=== PATIENT | female | born 1960 | race American Indian/Alaskan Native ===

== ENCOUNTER 2017-07-30 21:02 | Emergency (ER) | payer SELFPAY ==
[2017-07-30 21:51] LABS: Basophils % (Auto) 0.4 % (0.0-1.8); Eosinophils % (Auto) 1.6 % (0.0-4.3); Mean Corpuscular HGB Conc 33 % (30-34); Mean Corpuscular Hemoglobin 29 pg (28-32); Mean Corpuscular Volume 86 fl (79-97); Platelet Count 192 K/mm3 (140-440); Red Blood Count 4.52 M/mm3 (3.65-5.03); White Blood Count 9.2 K/mm3 (4.5-11.0)
[2017-07-30 22:12] LABS: Anion Gap 18 mmol/L; BUN/Creatinine Ratio 20; Blood Urea Nitrogen 12 mg/dL (7-17); Calcium 9.4 mg/dL (8.4-10.2); Carbon Dioxide 24 mmol/L (22-30); Chloride 101.3 mmol/L (98-107); Glucose 115 mg/dL (65-100); Potassium 3.7 mmol/L (3.6-5.0); Sodium 140 mmol/L (137-145)
[2017-07-30 23:43] LABS: Mucus,Urine FEW /HPF
--- NOTE | 2017-07-31 00:09 | Cat Scan Report ---
FINAL REPORT EXAM: CT HEAD/BRAIN WO CON HISTORY: RODRÍGUEZ TECHNIQUE: Routine axial imaging was obtained of the brain without IV contrast. FINDINGS: There are no attenuation abnormalities. The ventricular system is appropriate in size and is symmetric. The basal cisterns appear normal. The visualized sinuses are clear. The mastoid air cells are well pneumatized. The calvarium appears intact. IMPRESSION: Within normal limits.
[2017-07-31 00:23] VITALS: BP 187/97
[2017-07-31 00:31] LABS: Bacteria,Urine 1+ /HPF (Negative); Bilirubin,Urine NEG (Negative); Blood,Urine SM (Negative); Ketones,Urine NEG (Negative); Leukocyte Esterase,Urine NEG (Negative); Nitrite,Urine NEG (Negative); Urobilinogen,Urine < 2.0 mg/dL (<2.0)
[2017-07-31] MEDS ORDERED: TYLENOL PO ONE (00:33)
[2017-07-31] MEDS ORDERED: TYLENOL ONE (00:36)
== END 2017-07-31 03:15 | disposition left against medical advice (07) ==
LOC: ED 21:02
DX: Z53.21 Procedure and treatment not carried out due to patient leaving prior to being seen by health care provider (principal)
CPT/HCPCS: 36415; 70450; 80048; 81001; 82962; 84484; 85025; 93005; 93010

== ENCOUNTER 2017-09-09 13:23 | Outpatient (CLI) | payer MEDICAID ==
--- NOTE | 2017-09-09 14:12 | XRay Report ---
SUPINE KUB: History: Right-sided abdominal pain. The abdominal gas pattern is unremarkable. No masses or organomegaly is identified and there is no gross evidence of free air or fluid. No significant soft tissue calcifications are noted. IVC filter is noted at the level of L3. IMPRESSION: Unremarkable abdomen.
== END 2017-09-09 13:24 | disposition home or self-care (01) ==
LOC: XRAY 13:23
PROVIDERS: ATTEND Internal Medicine Hematology & Oncology
DX: R10.9 Unspecified abdominal pain (principal); I10 Essential (primary) hypertension; Z86.711 Personal history of pulmonary embolism
CPT/HCPCS: 74000

== ENCOUNTER 2017-09-30 09:50 | Outpatient (CLI) | payer MEDICAID ==
[2017-09-30 11:03] LABS: Blood Urea Nitrogen 10 mg/dL (7-17)
--- NOTE | 2017-09-30 12:20 | Cat Scan Report ---
CTA ABDOMEN AND PELVIS INDICATION: Right-sided abdominal pain. COMPARISON: None similar. FINDINGS: Abdomen and pelvis CT performed following IV contrast only. Axial, sagittal and coronal CT reconstructions as also computer-generated with rotation images pain. LUNG BASES: A 1 cm left lower lobe calcified granuloma noted with few small nonspecific left lower lobe and right middle lobe peripheral/pleural based noncalcified subcentimeter nodular densities. Nonspecific distal esophageal wall prominence/thickening, not excluded for gastroesophageal reflux and/or hiatal hernia, amongst others. ABDOMEN: CTA images demonstrate non-aneurysmal abdominal aorta with patent celiac axis, SMA, LAVONNE and single bilateral renal arteries. IVC filter tip just below the level of the renal veins. Multiple calcified gallstones individually measuring to the order of 7 mm fill the gallbladder. Small gallbladder wall calcification may also be present as on axial image 145, series 2. Few scattered hepatic hypervascular foci, some peripheral towards the dome as on axial images 36-60, series 2 while few others inferiorly may measure up to 1.5 cm in the right lobe as on axial image 85, nonspecific, though possibly technical/transient hepatic attenuation differences. Few small splenic calcified granulomas. Pancreas and right adrenal appear unremarkable. Approximately 1.5 cm left adrenal hypodense lesion, possibly an adenoma. Nonhydronephrotic kidneys. No ascites or size significant adenopathy. Nonopacified GI tract evaluation limited, though grossly nonobstructive. Normal appendix. Mild colonic stool. PELVIS: Non-aneurysmal, patent bilateral iliac arteries extending up to the groin. Uterus surgically absent. Grossly unremarkable urinary bladder and the rectosigmoid. No free fluid or significant adenopathy. Multilevel spinal and bilateral SI joint degenerative changes. CONCLUSION: Cholelithiasis and various other incidental findings as old healed granulomatous disease, left adrenal probable adenoma and hysterectomy, amongst others, as described. Please correlate. Thank you for the opportunity to participate in this patient's care.
--- NOTE | 2017-09-30 16:02 | XRay Report ---
ABDOMEN RADIOGRAPH INDICATION: Right-sided abdominal pain. COMPARISON: 10/15/2009 FINDINGS: Frontal abdominal radiograph demonstrates new IVC filter projecting over L2 and L3 on the right. Gap/discontinuity along one of its prongs may project about L3-L4 disc level. Nonobstructive bowel gas pattern. No focal suspicious calcifications, pneumatosis or pneumoperitoneum. Clear visualized lung bases. Intact bones. CONCLUSION: No acute abdominal radiographic abnormality with a new IVC filter noted since 2009, as described. Please correlate. Dr. London's office unreachable on multiple attempts; phone message left. Thank you for the opportunity to participate in this patient's care.
--- NOTE | 2017-10-01 10:33 | Mammography Report ---
BILATERAL DIGITAL SCREENING MAMMOGRAM with CAD: 09/30/17 09:50:00 CLINICAL: Routine screening. COMPARISON: None available. FINDINGS: There are bilateral scattered areas of fibroglandular density.No mass, architectural distortion or suspicious calcifications. IMPRESSION: No mammographic evidence of malignancy. BI-RADS CATEGORY: 1 -- Negative RECOMMENDATION: Routine mammographic screening in one year. COMMENT: Patient follow-up letters are generated by our [employer] application.
== END 2017-09-30 09:51 | disposition home or self-care (01) ==
LOC: CT 09:50
PROVIDERS: ATTEND Internal Medicine Hematology & Oncology
DX: Z12.31 Encounter for screening mammogram for malignant neoplasm of breast (principal); R91.8 Other nonspecific abnormal finding of lung field; K80.20 Calculus of gallbladder without cholecystitis without obstruction; E27.8 Other specified disorders of adrenal gland; M47.899 Other spondylosis, site unspecified; Z90.710 Acquired absence of both cervix and uterus
CPT/HCPCS: 36415; 74018; 74174; 77067; 82565; 84520; Q9967

== ENCOUNTER 2017-12-15 12:31 | Inpatient (IN) | payer MEDICAID, OTHER ==
[2017-12-15] MEDS ORDERED: SODIUM CHLORIDE FLUSH SYRINGE 10 ML IV PRN (13:43)
[2017-12-15] MEDS ORDERED: TYLENOL PO PRN (13:43)
[2017-12-15] MEDS ORDERED: ZOFRAN IV PRN (13:43)
[2017-12-15] MEDS ORDERED: PROVENTIL IH PRN (13:43)
--- NOTE | 2017-12-15 13:46 | History and Physical Report ---
History of Present Illness Chief complaint: Im hurting History of present illness: 57 YO Female with MO, CML, HTN, Anemia, Chronic Pain Syndrome, DVT/PE not currently taking anticoagulation, S/P IVC Filter placement admitted directly to [facility] at the request of Dr. London. Pt seen and evaluated upon arrival. Pt states that she has experienced painful rash along her right flank. Pt denies fever, chills, CP, Palpitations, NVD, Syncope, productive cough, BRBPR, or recent ill contacts. No reported nursing events. Past History Past Medical History: anemia, cancer, DVT, hypertension, pulmonary embolism Past Surgical History: hysterectomy, Other (IVC filter placement) Social history: single, lives with family Family history: no significant family history (reviewed) Medications and Allergies Allergies Allergy/AdvReac Type Severity Reaction Status Date / Time Penicillins Allergy Swelling Verified 07/30/17 21:21 Home Medications Medication Instructions Recorded Confirmed Last Taken Type Amlodipine Besylate [Norvasc] 10 mg PO 12/15/17 Unknown History HYDROcodone/APAP 5-325 5 - 325 mg PO Q6H PRN 12/15/17 12/15/17 Unknown History Metoprolol Tartrate 50 mg PO BID 12/15/17 12/15/17 Unknown History Sprycel 100 mg PO DAILY 12/15/17 12/15/17 Unknown History Sulfamethoxazole/Trimethoprim 160 mg PO BID 12/15/17 12/15/17 Unknown History Vitamin D2 50 PO 1XW 12/15/17 Unknown History hydrOXYzine HCL 25 mg PO TID 12/15/17 12/15/17 Unknown History oxyCODONE /ACETAMINOPHEN 10 - 325 mg PO TID 12/15/17 12/15/17 Unknown History Active Meds: Active Medications Acetaminophen (Tylenol) 650 mg PO Q4H PRN PRN Reason: Pain MILD(1-3)/Fever >100.5/RODRÍGUEZ Albuterol (Proventil) 2.5 mg IH Q4HRT PRN PRN Reason: Shortness Of Breath Ondansetron HCl (Zofran) 4 mg IV Q8H PRN PRN Reason: Nausea And Vomiting Sodium Chloride (Sodium Chloride Flush Syringe 10 Ml) 10 ml IV BID AKASH Sodium Chloride (Sodium Chloride Flush Syringe 10 Ml) 10 ml IV PRN PRN PRN Reason: LINE FLUSH Review of Systems Constitutional: no weight loss, no weight gain, no fever, no chills Ears, nose, mouth and throat: no ear pain, no ear discharge, no tinnitis, no decreased hearing, no nose pain, no nasal congestion Breasts: no change in shape, no swelling, no mass Cardiovascular: no chest pain, no orthopnea, no palpitations, no lightheadedness Respiratory: no cough, no cough with sputum, no excessive sputum, no hemoptysis , no shortness of breath Gastrointestinal: no abdominal pain, no nausea, no vomiting, no diarrhea Genitourinary Female: flank pain, no dysuria, no urinary frequency, no urgency, no stress incontinence, no post void dribbling Rectal: no pain, no incontinence, no bleeding Musculoskeletal: no neck stiffness, no neck pain, no shooting arm pain, no arm numbness/tingling, no low back pain, no shooting leg pain, no leg numbness/ tingling, no redness of joints Integumentary: rash (Right Flank, dermatomal distribution) Neurological: no head injury, no transient paralysis, no paralysis, no weakness , no parathesias, no numbness, no tingling Psychiatric: no anxiety, no memory loss, no change in sleep habits, no sleep disturbances, no insomnia, no hypersomnia Endocrine: no cold intolerance, no heat intolerance, no polyphagia, no excessive thirst Hematologic/Lymphatic: lymphedema, no easy bruising, no easy bleeding, no lymphadenopathy Allergic/Immunologic: no urticaria, no allergic rhinitis, no wheezing, no persistent infections, no anaphylaxis Exam - Constitutional General appearance: Present: mild distress, obese - EENT Eyes: Present: PERRL ENT: hearing intact, clear oral mucosa - Neck Neck: Present: supple, normal ROM - Respiratory Respiratory effort: labored Respiratory: bilateral: diminished - Cardiovascular Heart Sounds: Present: S1 & S2. Absent: rub, click - Extremities Extremities: pulses symmetrical, No edema Extremity abnormal: edema Peripheral Pulses: within normal limits - Abdominal General gastrointestinal: Present: soft, non-tender, non-distended, normal bowel sounds Female genitourinary: Present: normal - Integumentary Integumentary: Present: erythema, rash (Right flank, dermatomal distribution) - Musculoskeletal Musculoskeletal: generalized weakness - Psychiatric Psychiatric: appropriate mood/affect, intact judgment & insight - Neurologic Neurologic: CNII-XII intact, moves all extremities Results - Labs CBC & Chem 7: 12/15/17 15:21 12/15/17 15:14 Assessment and Plan - Patient Problems (1) CML (chronic myelocytic leukemia) Current Visit: Yes Status: Acute Plan to address problem: Oncology consulted, IVF resuscitation, pain control, continue current therapy (2) Shingles rash Current Visit: Yes Status: Acute Qualifiers: Herpes zoster complications: unspecified herpes zoster complication Qualified Code(s): B02.8 - Zoster with other complications Plan to address problem: Pain control, Acyclovir therapy, (3) History of pulmonary embolism Current Visit: Yes Status: Acute Plan to address problem: S/P IVC finter placement, not currently on anticoagulation. Vascular consulted, X ray abdomen, (4) S/P insertion of IVC (inferior vena caval) filter Current Visit: Yes Status: Acute Plan to address problem: VAscular surgery consulted regarding evaluation of IVC filter, and possible erosion into surrounding viscera. (5) DVT prophylaxis Current Visit: Yes Status: Acute Plan to address problem: SCD to BLE while in bed
[2017-12-15 15:35] LABS: Basophils % (Auto) 0.4 % (0.0-1.8); Eosinophils # (Auto) 0.2 K/mm3 (0.0-0.4); Eosinophils % (Auto) 2.3 % (0.0-4.3); Hematocrit 35.4 % (30.3-42.9); Hemoglobin 11.8 gm/dl (10.1-14.3); Lymphocytes # (Auto) 2.2 K/mm3 (1.2-5.4); Lymphocytes % (Auto) 32.8 % (13.4-35.0); Mean Corpuscular HGB Conc 33 % (30-34); Mean Corpuscular Hemoglobin 28 pg (28-32); Mean Corpuscular Volume 86 fl (79-97); Monocytes % (Auto) 15.3 % (0.0-7.3); Platelet Count 133 K/mm3 (140-440); Red Blood Count 4.15 M/mm3 (3.65-5.03); Red Cell Distribution Width 15.3 % (13.2-15.2)
--- NOTE | 2017-12-15 15:38 | XRay Report ---
AP ABDOMEN: HISTORY: Abdominal pain. The abdominal gas pattern is unremarkable. No masses or organomegaly is identified and there is no gross evidence of free air or fluid. No significant soft tissue calcifications are noted. An IVC filter is identified at the L3 level. No significant change since 09/30/17. IMPRESSION: Unremarkable abdomen.
[2017-12-15 16:00] LABS: Alanine Aminotransferase 12 units/L (7-56); Albumin 3.6 g/dL (3.9-5); BUN/Creatinine Ratio 19; Blood Urea Nitrogen 13 mg/dL (7-17); Calcium 8.7 mg/dL (8.4-10.2); Hemolysis Index 9
--- NOTE | 2017-12-15 19:35 | Consultation ---
History of Present Illness - Reason for Consult Consult date: 12/15/17 Requesting physician: ELISHA ROMO - History of Present Illness This pt is a 57 yo AAF directly admitted to [facility] with abdominal pain. She has a h/o DVT/PE in 2010. She was a poor candidate for anticoagulation due to persistent vaginal bleeding due to fibroids. An [employer] option inferior vena cava filter was placed (02/28/2011). The pt states approximately 1 yr later she developed episodic bouts of abd pain. She has had an extensive w/u by report. This included a CT scan of the abd/pelvis that reportedly showed a limb of the vena cava filter that exited the vena cava and potentially enters the duodenum. There is also mention of abd granulomas and Gallstones. She has been evaluated as an outpt for possible filter removal at [facility] (Dr Bethea) and [facility] (Dr Israel). A vascular surgery consult is now requested to further evaluate. Past History Past Medical History: hypertension, other (chronic back pain, h/o fibroids) Past Surgical History: Other (as stated above [employer] Option IVC filter 2010) Social history: lives with family (recently moved from [place]), other ( medically disabled). denies: smoking Family history: no significant family history Medications and Allergies Allergies Allergy/AdvReac Type Severity Reaction Status Date / Time Penicillins Allergy Swelling Verified 07/30/17 21:21 Active Meds: Active Medications Acetaminophen (Tylenol) 650 mg PO Q4H PRN PRN Reason: Pain MILD(1-3)/Fever >100.5/RODRÍGUEZ Last Admin: 12/15/17 17:39 Dose: 650 mg Albuterol (Proventil) 2.5 mg IH Q4HRT PRN PRN Reason: Shortness Of Breath Ondansetron HCl (Zofran) 4 mg IV Q8H PRN PRN Reason: Nausea And Vomiting Sodium Chloride (Sodium Chloride Flush Syringe 10 Ml) 10 ml IV BID AKASH Sodium Chloride (Sodium Chloride Flush Syringe 10 Ml) 10 ml IV PRN PRN PRN Reason: LINE FLUSH Review of Systems All systems: negative Exam - Constitutional Vitals: Temp Pulse Resp BP Pulse Ox 97.8 F 64 20 167/78 100 12/15/17 15:50 12/15/17 15:50 12/15/17 17:39 04/03/18 15:50 12/15/17 15:50 General appearance: Present: no acute distress, obese - EENT Eyes: Present: EOM intact ENT: hearing intact - Neck Neck: Present: supple - Respiratory Respiratory effort: normal - Extremities Extremities: no ischemia, normal temperature Extremity abnormal: edema (bilat lower ext swelling) - Psychiatric Psychiatric: appropriate mood/affect, intact judgment & insight, cooperative - Neurologic Neurologic: no focal deficits Results - Labs CBC & Chem 7: 12/15/17 15:21 12/15/17 15:14 Labs: Abnormal lab results 12/15/17 12/15/17 Range/Units 15:14 15:21 RDW 15.3 H (13.2-15.2) % Plt Count 133 L (140-440) K/mm3 [place] % (Auto) 15.3 H (0.0-7.3) % [place] # 1.0 H (0.0-0.8) K/mm3 Glucose 118 H (65-100) mg/dL Albumin 3.6 L (3.9-5) g/dL Assessment and Plan This pt is s/p Insertion of IVC filter ([employer] option) in 2010 following a DVT/PE and an inability to anticoagulate due to persistent vaginal bleeding associated with fibroids. She has since developed unexplained abdominal pain. A CT scan suggested that a possible limb of the filter may have penetrated the duodenum. A vascular surgery consult is requested to further evaluate. Would recommend a GI consultation for endoscopy (to visualize the duodenum for penetration by the filter, as the CT can easily be deceptive) prior to considering IVC filter removal. Filter removal after being in place for 7 years is not without risk. I discussed this with the pt. It is also possible that this represents an incidental finding, and may not be the source of her discomfort. She states understanding. Thank you for this consultation. - Patient Problems (1) S/P insertion of IVC (inferior vena caval) filter Current Visit: Yes Status: Acute (2) H/O deep venous thrombosis Current Visit: Yes Status: Acute (3) History of pulmonary embolism Current Visit: Yes Status: Acute (4) Abdominal pain Current Visit: Yes Status: Acute (5) Cholelithiasis Current Visit: Yes Status: Acute
--- NOTE | 2017-12-15 21:38 | Consultation ---
History of Present Illness - Reason for Consult Consult date: 12/15/17 cml/hyperrcoagulable Requesting physician: ELISHA ROMO - History of Present Illness Thank you for this consult, patient seen/examined, again, seen earlier today, and sent for a direct admit, for pain control, and evaluation of her displaced IVC filter.I have read the vascular note, but patient was seen at [facility], and stated that her problem was not related to GI, but is all due to the displaced IVC filter. This same conclusion was reached in [facility], GI, and vascular teams. They wanted her to go back to [place] where the IVC filter was placed. and have it removed.mean while patient has developed shingles on the right dermatome which is very pain full. Patient has active CML, and under going tx at this time from sc.She did have remote hx of DVT left leg, and Puml embolism, but not currently under tx.Will put her on IV anti viral, instead of oral, along with some steroid. Past History Past Medical History: anemia, cancer, hypertension, other (chronic back pain, h/ o fibroids) Past Surgical History: hysterectomy, Other (as stated above [employer] Option IVC filter 02/28/2011) Social history: single, lives with family (recently moved from [place]), other ( medically disabled). denies: smoking Family history: no significant family history Medications and Allergies Allergies Allergy/AdvReac Type Severity Reaction Status Date / Time Penicillins Allergy Swelling Verified 07/30/17 21:21 Home Medications Medication Instructions Recorded Confirmed Last Taken Type Amlodipine Besylate [Norvasc] 10 mg PO 12/15/17 Unknown History HYDROcodone/APAP 5-325 5 - 325 mg PO Q6H PRN 12/15/17 12/15/17 Unknown History Metoprolol Tartrate 50 mg PO BID 12/15/17 12/15/17 Unknown History Sprycel 100 mg PO DAILY 12/15/17 12/15/17 Unknown History Sulfamethoxazole/Trimethoprim 160 mg PO BID 12/15/17 12/15/17 Unknown History Vitamin D2 50 PO 1XW 12/15/17 Unknown History hydrOXYzine HCL 25 mg PO TID 12/15/17 12/15/17 Unknown History oxyCODONE /ACETAMINOPHEN 10 - 325 mg PO TID 12/15/17 12/15/17 Unknown History Active Meds: Active Medications Acetaminophen (Tylenol) 650 mg PO Q4H PRN PRN Reason: Pain MILD(1-3)/Fever >100.5/RODRÍGUEZ Last Admin: 12/15/17 17:39 Dose: 650 mg Acyclovir (Zovirax) 400 mg PO ONCE ONE Stop: 12/15/17 22:01 Albuterol (Proventil) 2.5 mg IH Q4HRT PRN PRN Reason: Shortness Of Breath Morphine Sulfate (Morphine) 2 mg IV Q4H PRN PRN Reason: Pain , Severe (7-10) Ondansetron HCl (Zofran) 4 mg IV Q8H PRN PRN Reason: Nausea And Vomiting Oxycodone/Acetaminophen (Percocet 5/325) 2 tab PO Q12H PRN PRN Reason: Pain, Moderate (4-6) Sodium Chloride (Sodium Chloride Flush Syringe 10 Ml) 10 ml IV BID AKASH Sodium Chloride (Sodium Chloride Flush Syringe 10 Ml) 10 ml IV PRN PRN PRN Reason: LINE FLUSH Review of Systems Constitutional: chronic pain Breasts: deferred Integumentary: rash, redness, lesions Exam - Constitutional Vitals: Temp Pulse Resp BP Pulse Ox 99.0 F 72 28 H 143/67 95 12/15/17 19:45 12/15/17 19:45 12/15/17 19:45 12/15/17 19:45 12/15/17 19:45 General appearance: Present: mild distress, well-nourished - EENT Eyes: Present: PERRL ENT: hearing intact, clear oral mucosa - Neck Neck: Present: supple, normal ROM - Respiratory Respiratory effort: normal Respiratory: bilateral: CTA - Cardiovascular Heart Sounds: Present: S1 & S2. Absent: rub, click - Extremities Extremities: pulses symmetrical, No edema Peripheral Pulses: within normal limits - Abdominal General gastrointestinal: Present: soft, non-tender, non-distended, normal bowel sounds Female genitourinary: Present: deferred - Rectal Rectal Exam: deferred - Integumentary Integumentary: Present: clear, warm, dry - Musculoskeletal Musculoskeletal: gait normal, strength equal bilaterally - Psychiatric Psychiatric: appropriate mood/affect, intact judgment & insight - Neurologic Neurologic: CNII-XII intact, moves all extremities Results - Labs CBC & Chem 7: 12/15/17 15:21 12/15/17 15:14 Labs: Abnormal lab results 12/15/17 12/15/17 Range/Units 15:14 15:21 RDW 15.3 H (13.2-15.2) % Plt Count 133 L (140-440) K/mm3 [place] % (Auto) 15.3 H (0.0-7.3) % [place] # 1.0 H (0.0-0.8) K/mm3 Glucose 118 H (65-100) mg/dL Albumin 3.6 L (3.9-5) g/dL Assessment and Plan - Patient Problems (1) Abdominal pain Current Visit: Yes Status: Acute Plan to address problem: pain control. (2) Cholelithiasis Current Visit: Yes Status: Acute Plan to address problem: supportive care. (3) S/P insertion of IVC (inferior vena caval) filter Current Visit: Yes Status: Acute Plan to address problem: vascular on board. (4) H/O deep venous thrombosis Current Visit: Yes Status: Acute Plan to address problem: not currently active. (5) History of pulmonary embolism Current Visit: Yes Status: Acute Plan to address problem: supportive care, not currently active. (6) Shingles rash Current Visit: Yes Status: Acute Plan to address problem: tx with antiviral/anti inflammatory.
[2017-12-15] MEDS: MORPHINE IV PRN (21:41)
[2017-12-15] MEDS: SODIUM CHLORIDE FLUSH SYRINGE 10 ML IV SCH (21:47)
[2017-12-15] MEDS ORDERED: ZOVIRAX IV SCH (22:00)
[2017-12-15] MEDS ORDERED: ZOVIRAX PO ONE (22:00)
[2017-12-15] MEDS: NACL 0.9% IV SCH (23:36)
[2017-12-15] MEDS: ZOVIRAX IV SCH (23:36)
[2017-12-16] MEDS: ZOVIRAX IV SCH ×3 (05:55→22:34)
[2017-12-16] MEDS: NACL 0.9% IV SCH ×3 (05:55→22:34)
[2017-12-16] MEDS: PERCOCET 5/325 PO PRN ×2 (06:57→22:05)
[2017-12-16] MEDS: SODIUM CHLORIDE FLUSH SYRINGE 10 ML IV SCH (10:42)
--- NOTE | 2017-12-16 11:56 | Progress Note ---
Assessment and Plan Pt with a long history of abd pain (~6yrs). She describes the pain as mostly constant, started off as a "pinching", but over the last week it has worsened and feels, "like an abscess about to pop". We've reviewed the CT scan from [facility] in Sep 2017, and the CT scan from [facility] last week. The filter does appear to exit the vena cava, both at the hub and at tines. One of the tines appears to have from the main body of the filter, (not mentioned on the recent CT dictation). Unlikely to be able to remove the filter in its entirety percutaneously due to the limb separation. It is difficulty to say with all accuracy that the filter tines penetrate the duodenum. The pt states she has never had endoscopy. Would recommend GI consult for endoscopic evaluation prior to any surgical intervention. The pt has multiple potential sources for abd pain found on her most recent CT. This includes Cholelithiasis. Discussed with Dr Laboy (who has previously evaluated the pt). She agrees with endoscopy. If the filter tines are visualized then the pt would likely need an open laporatomy to remove the filter in its entirety. We would co-ordinate with Gen surgery to combine with an open cholecystomy at the same time. If the tines are not visualized then, Gen Surgery could proceed with Laproscopic Cholecystectomy to see if her abd pain improves (thus avoiding the much more invasive open procedure). If the pain persist following Lap Cholecystectomy then we could proceed with open filter removal. Discussed with the Pt. - Patient Problems (1) S/P insertion of IVC (inferior vena caval) filter Current Visit: Yes Status: Acute (2) H/O deep venous thrombosis Current Visit: Yes Status: Acute (3) History of pulmonary embolism Current Visit: Yes Status: Acute (4) Abdominal pain Current Visit: Yes Status: Acute (5) Cholelithiasis Current Visit: Yes Status: Acute Subjective Date of service: 12/16/17 Interval history: Pt awake and alert. Denies new complaint. Objective - Constitutional Vitals: Vital Signs - 12hr 12/16/17 12/16/17 03:22 07:38 Temperature 98.0 F 98 F Pulse Rate 64 61 Respiratory 24 24 Rate Blood Pressure 131/60 Blood Pressure 118/52 [Left] O2 Sat by Pulse 95 95 Oximetry General appearance: Present: no acute distress - EENT Eyes: EOM intact ENT: hearing intact - Respiratory Respiratory effort: normal Extremities: no ischemia Extremity abnormal: edema (bilat lower ext) - Neurologic Neurologic: no focal deficits - Psychiatric Psychiatric: appropriate mood/affect, intact judgment & insight, cooperative - Labs CBC & Chem 7: 12/15/17 15:21 12/15/17 15:14 Labs: Abnormal lab results 12/15/17 12/15/17 Range/Units 15:14 15:21 RDW 15.3 H (13.2-15.2) % Plt Count 133 L (140-440) K/mm3 [place] % (Auto) 15.3 H (0.0-7.3) % [place] # 1.0 H (0.0-0.8) K/mm3 Glucose 118 H (65-100) mg/dL Albumin 3.6 L (3.9-5) g/dL
--- NOTE | 2017-12-16 16:32 | Progress Note ---
Assessment and Plan Assessment and Plan - Patient Problems (1) CML (chronic myelocytic leukemia) Current Visit: Yes Status: Acute Plan to address problem: Oncology consulted, IVF resuscitation, pain control, continue current therapy (2) Shingles rash Current Visit: Yes Status: Acute Qualifiers: Herpes zoster complications: unspecified herpes zoster complication Qualified Code(s): B02.8 - Zoster with other complications Plan to address problem: Pain control, Acyclovir therapy, (3) History of pulmonary embolism Current Visit: Yes Status: Acute Plan to address problem: S/P IVC filter placement, not currently on anticoagulation. Vascular consulted, X ray abdomen, (4) S/P insertion of IVC (inferior vena caval) filter Current Visit: Yes Status: Acute Plan to address problem: VAscular surgery consulted regarding evaluation of IVC filter, and possible erosion into surrounding viscera. (5) DVT prophylaxis Current Visit: Yes Status: Acute Plan to address problem: SCD to BLE while in bed Subjective Date of service: 12/16/17 Principal diagnosis: Shingles and IVC filter p erosion Interval history: Sx better Objective - Constitutional Vitals: Vital Signs - 12hr 12/16/17 12/16/17 12/16/17 07:38 12:12 14:46 Temperature 98 F 98 F 98.9 F Pulse Rate 61 20 L 66 Respiratory 24 18 14 Rate Blood Pressure 118/52 138/71 124/62 [Left] O2 Sat by Pulse 95 97 97 Oximetry General appearance: Present: no acute distress, well-nourished - EENT Eyes: PERRL, EOM intact ENT: hearing intact, clear oral mucosa Ears: bilateral: normal - Neck Neck: supple, normal ROM - Respiratory Respiratory effort: normal Respiratory: bilateral: CTA - Breasts Breasts: normal - Cardiovascular Rhythm: regular Heart Sounds: Present: S1 & S2. Absent: gallop, rub Extremities: pulses intact, No edema, normal color, Full ROM - Gastrointestinal General gastrointestinal: Present: soft, non-tender, non-distended, normal bowel sounds - Genitourinary Female genitourinary: normal - Integumentary Integumentary: clear, warm, dry - Musculoskeletal Musculoskeletal: 1, strength equal bilaterally - Neurologic Neurologic: moves all extremities - Psychiatric Psychiatric: memory intact, appropriate mood/affect, intact judgment & insight - Labs CBC & Chem 7: 12/15/17 15:21 12/19/17 10:47
--- NOTE | 2017-12-16 23:48 | Progress Note ---
Assessment and Plan - Patient Problems (1) Abdominal pain Current Visit: Yes Status: Acute Plan to address problem: pain control. (2) Cholelithiasis Current Visit: Yes Status: Acute Plan to address problem: supportive care. GI/vascular team approach awaited. (3) S/P insertion of IVC (inferior vena caval) filter Current Visit: Yes Status: Acute Plan to address problem: vascular on board. (4) H/O deep venous thrombosis Current Visit: Yes Status: Acute Plan to address problem: not currently active. (5) History of pulmonary embolism Current Visit: Yes Status: Acute Plan to address problem: supportive care, not currently active. (6) Shingles rash Current Visit: Yes Status: Acute Plan to address problem: tx with antiviral/anti inflammatory. Subjective Date of service: 12/16/17 Interval history: Patient seen/examined, case d/w her. Notes/record reviewed.Will follow GI/ Vascular.continue to tx shingles. Objective - Constitutional Vitals: Vital Signs - 12hr 12/16/17 12/16/17 12/16/17 12:12 14:46 19:38 Temperature 98 F 98.9 F 98.5 F Pulse Rate 20 L 66 69 Respiratory 18 14 24 Rate Blood Pressure 147/62 Blood Pressure 138/71 124/62 [Left] O2 Sat by Pulse 97 97 96 Oximetry General appearance: Present: mild distress, well-nourished - EENT Eyes: PERRL, EOM intact ENT: hearing intact, clear oral mucosa Ears: bilateral: normal - Neck Neck: supple, normal ROM - Respiratory Respiratory effort: normal Respiratory: bilateral: CTA - Breasts Breasts: deferred - Cardiovascular Rhythm: regular Heart Sounds: Present: S1 & S2. Absent: gallop, rub Extremities: pulses intact, No edema, normal color, Full ROM - Gastrointestinal General gastrointestinal: Present: soft, non-tender, non-distended, normal bowel sounds Rectal Exam: deferred - Genitourinary Female genitourinary: deferred - Integumentary Integumentary: clear, warm, dry - Musculoskeletal Musculoskeletal: 1, strength equal bilaterally - Neurologic Neurologic: moves all extremities - Psychiatric Psychiatric: memory intact, appropriate mood/affect, intact judgment & insight - Labs CBC & Chem 7: 12/15/17 15:21 12/15/17 15:14
[2017-12-17] MEDS: NACL 0.9% IV SCH ×3 (06:17→21:46)
[2017-12-17] MEDS: ZOVIRAX IV SCH ×3 (06:17→21:46)
[2017-12-17] MEDS: SODIUM CHLORIDE FLUSH SYRINGE 10 ML IV SCH ×3 (06:19→21:48)
--- NOTE | 2017-12-17 09:56 | Gastroenterology Consultation ---
<KYA MIGUEL - Last Filed: 12/17/17 10:26> History of Present Illness - Reason for Consult Consult date: 12/17/17 FB duodenum-IVC filter tines Requesting physician: JEFFREY URBINA - History of Present Illness Patient is a 57 y/o female with PMH of [place], CML (actively receiving tx), HTN, anemia, chronic pain syndrome, DVT/PE (s/p IVC filter placement) who was admitted directly to [facility] by Dr. Ignacio for pain control from shingles, abd pain, and evaluation of her displaced IVC filter. Recent abd CT showed cholelithiasis and a limb of the vena cava filter that exited the vena cava and potentially enters the duodenum. Surgery and IR following. GI has been consulted for an endoscopic evaluation to see if the filter tines penetrate the duodenum prior to surgical intervention to determine if pt would need to undergo an open laporatomy to remove filter in its entirety with open cholecystomy vs laproscopic cholecystectomy with potential open filter removal if abd pain persists. This morning pt was resting in bed w/o acute distress. She reports constant right sided abd pain that feels like something is stabbing/ sticking her. No N/V and currently tolerating diet. Denies fever, wt loss, CP, SOB, dysphagia, odynophagia, diarrhea, constipation, or signs of bleeding. No previous EGD. Past History Past Medical History: anemia, cancer, DVT, hypertension, pulmonary embolism Past Surgical History: hysterectomy, Other (IVC filter placement) Social history: single, lives with family Family history: no significant family history (reviewed) Medications and Allergies Allergies Allergy/AdvReac Type Severity Reaction Status Date / Time Penicillins Allergy Swelling Verified 07/30/17 21:21 Home Medications Medication Instructions Recorded Confirmed Last Taken Type Amlodipine Besylate [Norvasc] 10 mg PO 12/15/17 Unknown History HYDROcodone/APAP 5-325 5 - 325 mg PO Q6H PRN 12/15/17 12/15/17 Unknown History Metoprolol Tartrate 50 mg PO BID 12/15/17 12/15/17 Unknown History Sprycel 100 mg PO DAILY 12/15/17 12/15/17 Unknown History Sulfamethoxazole/Trimethoprim 160 mg PO BID 12/15/17 12/15/17 Unknown History Vitamin D2 50 PO 1XW 12/15/17 Unknown History hydrOXYzine HCL 25 mg PO TID 12/15/17 12/15/17 Unknown History oxyCODONE /ACETAMINOPHEN 10 - 325 mg PO TID 12/15/17 12/15/17 Unknown History Active Meds: Active Medications Acetaminophen (Tylenol) 650 mg PO Q4H PRN PRN Reason: Pain MILD(1-3)/Fever >100.5/RODRÍGUEZ Last Admin: 12/15/17 17:39 Dose: 650 mg Albuterol (Proventil) 2.5 mg IH Q4HRT PRN PRN Reason: Shortness Of Breath Acyclovir 1,000 mg/ Sodium (Chloride) 270 mls @ 135 mls/hr IV Q8HR [facility] Last Admin: 12/17/17 06:17 Dose: 135 mls/hr Methylprednisolone Sodium Succinate (Solu-Medrol) 40 mg IV Q24HR [facility] Last Admin: 12/16/17 10:42 Dose: 40 mg Morphine Sulfate (Morphine) 2 mg IV Q4H PRN PRN Reason: Pain , Severe (7-10) Last Admin: 12/15/17 21:41 Dose: 2 mg Ondansetron HCl (Zofran) 4 mg IV Q8H PRN PRN Reason: Nausea And Vomiting Oxycodone/Acetaminophen (Percocet 5/325) 2 tab PO Q12H PRN PRN Reason: Pain, Moderate (4-6) Last Admin: 12/16/17 22:05 Dose: 2 tab Sodium Chloride (Sodium Chloride Flush Syringe 10 Ml) 10 ml IV BID [facility] Last Admin: 12/17/17 06:19 Dose: 10 ml Sodium Chloride (Sodium Chloride Flush Syringe 10 Ml) 10 ml IV PRN PRN PRN Reason: LINE FLUSH Last Admin: 12/16/17 22:08 Dose: 10 ml Review of Systems - Review of Systems All systems: negative Gastrointestinal: abdominal pain Exam - Constitutional Vital Signs: Temp Pulse Resp BP Pulse Ox 98.1 F 61 20 127/51 96 12/17/17 03:57 12/17/17 03:57 12/17/17 03:57 12/17/17 03:57 12/17/17 03:57 General appearance: no acute distress, obese - EENT Eyes: PERRL, EOM intact ENT: hearing intact - Respiratory Respiratory: bilateral: CTA - Cardiovascular Rhythm: regular Heart Sounds: Present: S1 & S2 - Gastrointestinal General gastrointestinal: Present: soft, tender (mild right sided TTP), non- distended, normal bowel sounds - Integumentary Integumentary: Present: warm, dry - Neurologic Neurological: alert and oriented x3 - Labs CBC & Chem 7: 12/15/17 15:21 12/15/17 15:14 Assessment and Plan 1.abd pain 2.s/p insertion of IVC filter 3.cholelithiasis 4.h/o DVT/PE 5.shingles -afebrile -WBC and LFTs-WNL -abd CT showed cholelithiasis and a limb of the vena cava filter that exited the vena cava and potentially enters the duodenum -Surgery and IR following -will schedule for EGD tomorrow (pt ate breakfast today) for evaluation to see if filter tines penetrate the duodenum -NPO after MN -INR in am -continue supportive care -will follow <VAL BROWN - Last Filed: 12/17/17 20:51> Medications and Allergies Active Meds: Active Medications Acetaminophen (Tylenol) 650 mg PO Q4H PRN PRN Reason: Pain MILD(1-3)/Fever >100.5/RODRÍGUEZ Last Admin: 12/15/17 17:39 Dose: 650 mg Albuterol (Proventil) 2.5 mg IH Q4HRT PRN PRN Reason: Shortness Of Breath Acyclovir 1,000 mg/ Sodium (Chloride) 270 mls @ 135 mls/hr IV Q8HR [facility] Last Admin: 12/17/17 19:19 Dose: Not Given Methylprednisolone Sodium Succinate (Solu-Medrol) 40 mg IV Q24HR [facility] Last Admin: 12/17/17 09:57 Dose: 40 mg Morphine Sulfate (Morphine) 2 mg IV Q4H PRN PRN Reason: Pain , Severe (7-10) Last Admin: 12/17/17 12:13 Dose: 2 mg Ondansetron HCl (Zofran) 4 mg IV Q8H PRN PRN Reason: Nausea And Vomiting Oxycodone/Acetaminophen (Percocet 5/325) 2 tab PO Q12H PRN PRN Reason: Pain, Moderate (4-6) Last Admin: 12/16/17 22:05 Dose: 2 tab Sodium Chloride (Sodium Chloride Flush Syringe 10 Ml) 10 ml IV BID [facility] Last Admin: 12/17/17 10:00 Dose: 10 ml Sodium Chloride (Sodium Chloride Flush Syringe 10 Ml) 10 ml IV PRN PRN PRN Reason: LINE FLUSH Last Admin: 12/16/17 22:08 Dose: 10 ml Exam - Constitutional Vital Signs: Temp Pulse Resp BP Pulse Ox 98.7 F 72 24 138/62 97 12/17/17 20:11 12/17/17 20:11 12/17/17 20:11 12/17/17 20:11 12/17/17 20:11 - Labs CBC & Chem 7: 12/15/17 15:21 12/17/17 10:52 Lab Results: Laboratory Results - last 24 hr 12/17/17 10:52 Sodium 136 L Potassium 4.8 D Chloride 103.3 Carbon Dioxide 20 L Anion Gap 18 BUN 13 Creatinine 0.6 L Estimated GFR > 60 BUN/Creatinine Ratio 22 Glucose 120 H Calcium 8.9 Assessment and Plan Patient seen and examined. Agree with note by Kya Miguel.
--- NOTE | 2017-12-17 10:00 | Event Note ---
Date: 12/17/17 Vascular awaiting GI evaluation with endoscopy for further recommendations.
[2017-12-17] MEDS: MORPHINE IV PRN (12:13)
[2017-12-17 12:19] LABS: BUN/Creatinine Ratio 22; Blood Urea Nitrogen 13 mg/dL (7-17); Calcium 8.9 mg/dL (8.4-10.2); Hemolysis Index 272
--- NOTE | 2017-12-17 14:03 | Progress Note ---
Assessment and Plan Assessment and Plan - Patient Problems (1) CML (chronic myelocytic leukemia) Current Visit: Yes Status: Acute Plan to address problem: Oncology consulted, IVF resuscitation, pain control, continue current therapy (2) Herpes zoster Current Visit: Yes Status: Acute Qualifiers: Herpes zoster complications: unspecified herpes zoster complication Qualified Code(s): B02.8 - Zoster with other complications Plan to address problem: Pain control, Acyclovir therapy, (3) History of pulmonary embolism Current Visit: Yes Status: Acute Plan to address problem: S/P IVC filter placement, not currently on anticoagulation. Vascular consulted, X ray abdomen, (4) S/P insertion of IVC (inferior vena caval) filter Current Visit: Yes Status: Acute Plan to address problem: VAscular surgery consulted regarding evaluation of IVC filter, and possible erosion into surrounding viscera. (5) DVT prophylaxis Current Visit: Yes Status: Acute Plan to address problem: SCD to BLE while in bed Subjective Date of service: 12/17/17 Principal diagnosis: Herpes Zoster and IVC filter possible erosion Interval history: Sx better Objective - Constitutional Vitals: Vital Signs - 12hr 12/17/17 12/17/17 03:57 10:03 Temperature 98.1 F Pulse Rate 61 Respiratory 20 Rate Blood Pressure 127/51 O2 Sat by Pulse 96 100 Oximetry General appearance: Present: no acute distress, well-nourished - EENT Eyes: PERRL, EOM intact ENT: hearing intact, clear oral mucosa Ears: bilateral: normal - Neck Neck: supple, normal ROM - Respiratory Respiratory effort: normal Respiratory: bilateral: CTA - Breasts Breasts: normal - Cardiovascular Rhythm: regular Heart Sounds: Present: S1 & S2. Absent: gallop, rub Extremities: pulses intact, No edema, normal color, Full ROM - Gastrointestinal General gastrointestinal: Present: soft, non-tender, non-distended, normal bowel sounds - Genitourinary Female genitourinary: normal - Integumentary Integumentary: clear, warm, dry - Musculoskeletal Musculoskeletal: 1, strength equal bilaterally - Neurologic Neurologic: moves all extremities - Psychiatric Psychiatric: memory intact, appropriate mood/affect, intact judgment & insight - Labs CBC & Chem 7: 12/15/17 15:21 12/19/17 10:47 Labs: Abnormal lab results 12/17/17 Range/Units 10:52 Sodium 136 L (137-145) mmol/L Carbon Dioxide 20 L (22-30) mmol/L Creatinine 0.6 L (0.7-1.2) mg/dL Glucose 120 H (65-100) mg/dL
--- NOTE | 2017-12-17 15:03 | Progress Note ---
Assessment and Plan She is admitted to control her Shingles. She had known symptomatic gallstones and this was being addressed by Dr. Preston. The plan was to perform an elective cholecystectomy once her Shingles resolve as the blistering extends into the area were we would make incisions. The recommends now are to first continue treating the shingles. Second vascular surgery will determine if the IVC filter needs to be removed based on the findings on the EGD that is planned. If they determine the IVC filter needs to be removed then will remove the gallbladder at the same operation. If vascular surgery determines the IVC filter does not need to be removed at this time then we will wait for her shingles to resolve and then set up an elective laparoscopic cholecystectomy. Will follow until which the final plan is determined. Subjective Date of service: 12/17/17 Patient Reports: Positive: no new complaints Objective Vital Signs - 12hr 12/17/17 12/17/17 03:57 10:03 Temperature 98.1 F Pulse Rate 61 Respiratory 20 Rate Blood Pressure 127/51 O2 Sat by Pulse 96 100 Oximetry - General physical appearance well developed, well nourished, obese - Abdomen soft, not tender, bowel sounds normal - Labs 12/15/17 15:21 12/17/17 10:52 Diabetes panel 12/17/17 Range/Units 10:52 Sodium 136 L (137-145) mmol/L Potassium 4.8 D (3.6-5.0) mmol/L Chloride 103.3 (98-107) mmol/L Carbon Dioxide 20 L (22-30) mmol/L BUN 13 (7-17) mg/dL Creatinine 0.6 L (0.7-1.2) mg/dL Glucose 120 H (65-100) mg/dL Calcium 8.9 (8.4-10.2) mg/dL Calcium panel 12/17/17 Range/Units 10:52 Calcium 8.9 (8.4-10.2) mg/dL Pituitary panel 12/17/17 Range/Units 10:52 Sodium 136 L (137-145) mmol/L Potassium 4.8 D (3.6-5.0) mmol/L Chloride 103.3 (98-107) mmol/L Carbon Dioxide 20 L (22-30) mmol/L BUN 13 (7-17) mg/dL Creatinine 0.6 L (0.7-1.2) mg/dL Glucose 120 H (65-100) mg/dL Calcium 8.9 (8.4-10.2) mg/dL Adrenal panel 12/17/17 Range/Units 10:52 Sodium 136 L (137-145) mmol/L Potassium 4.8 D (3.6-5.0) mmol/L Chloride 103.3 (98-107) mmol/L Carbon Dioxide 20 L (22-30) mmol/L BUN 13 (7-17) mg/dL Creatinine 0.6 L (0.7-1.2) mg/dL Glucose 120 H (65-100) mg/dL Calcium 8.9 (8.4-10.2) mg/dL
--- NOTE | 2017-12-17 23:12 | Progress Note ---
Assessment and Plan - Patient Problems (1) Abdominal pain Current Visit: Yes Status: Acute Plan to address problem: pain control. (2) Cholelithiasis Current Visit: Yes Status: Acute Plan to address problem: supportive care. GI/vascular team approach awaited. (3) S/P insertion of IVC (inferior vena caval) filter Current Visit: Yes Status: Acute Plan to address problem: vascular on board. (4) H/O deep venous thrombosis Current Visit: Yes Status: Acute Plan to address problem: not currently active. (5) History of pulmonary embolism Current Visit: Yes Status: Acute Plan to address problem: supportive care, not currently active. (6) Shingles rash Current Visit: Yes Status: Acute Plan to address problem: tx with antiviral/anti inflammatory. (7) Chronic leukemia Current Visit: Yes Status: Acute Plan to address problem: continue with oral treatment. Subjective Date of service: 12/17/17 Interval history: Patient seen/examined, case d/w her. Notes/record reviewed.Will follow GI/ Vascular.continue to tx shingles. Patient seen/examined, resting in bed, labs reviewed, and the notes. will follow your plans. Objective - Constitutional Vitals: Vital Signs - 12hr 12/17/17 12/17/17 12/17/17 15:11 20:11 21:42 Temperature 98.0 F 98.7 F Pulse Rate 64 72 Respiratory 18 24 Rate Blood Pressure 149/61 138/62 O2 Sat by Pulse 96 97 97 Oximetry General appearance: Present: mild distress, well-nourished - EENT Eyes: PERRL, EOM intact ENT: hearing intact, clear oral mucosa Ears: bilateral: normal - Neck Neck: supple, normal ROM - Respiratory Respiratory effort: normal Respiratory: bilateral: CTA - Breasts Breasts: deferred - Cardiovascular Rhythm: regular Heart Sounds: Present: S1 & S2. Absent: gallop, rub Extremities: pulses intact, No edema, normal color, Full ROM - Gastrointestinal General gastrointestinal: Present: soft, non-tender, non-distended, normal bowel sounds Rectal Exam: deferred - Genitourinary Female genitourinary: deferred - Integumentary Integumentary: clear, warm, dry - Musculoskeletal Musculoskeletal: 1, strength equal bilaterally - Neurologic Neurologic: moves all extremities - Psychiatric Psychiatric: memory intact, appropriate mood/affect, intact judgment & insight - Labs CBC & Chem 7: 12/15/17 15:21 12/17/17 10:52 Labs: Abnormal lab results 12/17/17 Range/Units 10:52 Sodium 136 L (137-145) mmol/L Carbon Dioxide 20 L (22-30) mmol/L Creatinine 0.6 L (0.7-1.2) mg/dL Glucose 120 H (65-100) mg/dL
[2017-12-18] MEDS: PERCOCET 5/325 PO PRN (00:32)
[2017-12-18] MEDS: ZOVIRAX IV SCH ×2 (05:43→18:46)
[2017-12-18] MEDS: NACL 0.9% IV SCH ×2 (05:43→18:46)
[2017-12-18 07:01] LABS: INR 0.87 (0.87-1.13)
[2017-12-18] MEDS: SODIUM CHLORIDE FLUSH SYRINGE 10 ML IV SCH (10:47)
--- NOTE | 2017-12-18 12:23 | Anesthesia Consultation ---
Anesthesia Consult and Med Hx Date of service: 12/18/17 - Airway Anesthetic Teeth Evaluation: Good ROM Head & Neck: Adequate Mental/Hyoid Distance: Adequate Mallampati Class: Class II Intubation Access Assessment: Probably Good - Pulmonary Exam CTA: Yes - Cardiac Exam Cardiac Exam: RRR - Pre-Operative Health Status ASA Pre-Surgery Classification: ASA3 Proposed Anesthetic Plan: TIVA - Pulmonary Hx Asthma: No COPD: No Hx Pneumonia: No - Cardiovascular System Hx Hypertension: Yes - Central Nervous System Hx Psychiatric Problems: No - Endocrine Hx End Stage Renal Disease: No - Other Systems Hx Cancer: Yes
[2017-12-18] MEDS: NACL 0.9% 1000 ML 1,000 ML IV SCH ×2 (12:24→23:07)
--- NOTE | 2017-12-18 12:57 | Progress Note ---
Assessment and Plan Await EGD; Continue with plan as outlined in last progress note. Subjective Date of service: 12/18/17 Patient Reports: Positive: no new complaints Objective Vital Signs - 12hr 12/18/17 12/18/17 12/18/17 04:13 08:54 08:57 Temperature 97.8 F 97.8 F Pulse Rate 65 57 L 68 Pulse Rate [ From Monitor] Respiratory 20 16 Rate Blood Pressure 140/56 O2 Sat by Pulse 96 100 99 Oximetry 12/18/17 12/18/17 12/18/17 09:13 10:57 11:46 Temperature 98.2 F Pulse Rate 58 L Pulse Rate [ 57 L From Monitor] Respiratory 20 12 Rate Blood Pressure 180/83 O2 Sat by Pulse 96 100 100 Oximetry - Abdomen soft, bowel sounds normal - Labs 12/15/17 15:21 12/17/17 10:52
[2017-12-18] MEDS ORDERED: NACL 0.9% 1000 ML 1,000 ML IV SCH (13:00)
[2017-12-18] MEDS ORDERED: DIPRIVAN 10 MG/ML IV ONE (13:54)
--- NOTE | 2017-12-18 14:27 | Post Operative Note ---
Pre-op diagnosis: abdominal pain, abnormal CT scan Post-op diagnosis: other (clean based gastric ulcers, otherwise no abnormal duodenal findings (extent to jejunum)) Findings: clean based gastric ulcers, biopsies obtained. otherwise unremarkable visualized portion of small bowel (enteroscopy performed) Procedure: Enteroscopy with biopsies Anesthesia: MAC Surgeon: VAL BROWN Estimated blood loss: minimal Pathology: list (Jar A - gastric biopsies) Specimen disposition: to lab Condition: stable Disposition: floor
--- NOTE | 2017-12-18 14:33 | Operative Report ---
Operative Report Operative Report: Push Enteroscopy with Biopsies Procedure Note Date of procedure: 12/18/2017 Endoscopist: Cesar Ahuja Pre-op diagnosis: abdominal pain, abnormal CT scan (rule out penetrating IVC filter) Post-op diagnosis: gastric ulcers, gastritis, unremarkable visualized small bowel Anesthesia: MAC Complications: No immediate complications Estimated blood loss: minimal Procedure: After consent was obtained, the patient was placed in the left lateral decubitus position. The [employer] pediatric colonoscope was inserted into the patient's mouth under direct vision, and advanced to the jejunum without difficulty. The patient tolerated the procedure fairly well. The views of the mucosa were good. Patient's vital signs were monitored continuously throughout the procedure. Findings: The esophagus appeared normal. There were a couple clean based ulcers in the antrum of the stomach. There was an area of moderately erythematous mucosa in the antrum. Biopsies were obtained (evaluate for H pylori, rule out dysplasia). Otherwise, the stomach appeared normal. The visualized portion of small bowel was unremarkable (extent to jejunum), without obvious infiltrating IVC filter or other lesions Impression: 1. Gastric ulcers (clean based) as above 2. Gastritis. Biopsies obtained. 3. Unremarkable visualized small bowel Recommendations: -follow-up pathology -PPI daily -avoid NSAIDs -repeat upper endoscopy in 2 months to assess for ulcer healing -further management per vascular/surgery Will sign off, please call as needed or with questions.
[2017-12-18] MEDS: MORPHINE IV PRN (18:45)
--- NOTE | 2017-12-18 21:15 | Progress Note ---
Assessment and Plan - Patient Problems (1) Abdominal pain Current Visit: Yes Status: Acute Plan to address problem: pain control. awaiting eventual removal of the IVC filter when surgically safe. (2) Cholelithiasis Current Visit: Yes Status: Acute Plan to address problem: supportive care. GI/vascular team approach awaited. (3) S/P insertion of IVC (inferior vena caval) filter Current Visit: Yes Status: Acute Plan to address problem: vascular on board. (4) H/O deep venous thrombosis Current Visit: Yes Status: Acute Plan to address problem: not currently active. (5) History of pulmonary embolism Current Visit: Yes Status: Acute Plan to address problem: supportive care, not currently active. (6) Shingles rash Current Visit: Yes Status: Acute Plan to address problem: tx with antiviral/anti inflammatory. (7) Chronic leukemia Current Visit: Yes Status: Acute Plan to address problem: continue with oral treatment. Subjective Date of service: 12/18/17 Interval history: Patient seen/examined, case d/w her. Notes/record reviewed.Will follow GI/ Vascular.continue to tx shingles. Patient seen/examined, resting in bed, labs reviewed, and the notes. will follow your plans. Patient seen/examined, records /labs reviewed, case d/w patient, will follow all the recommendations. Objective - Constitutional Vitals: Vital Signs - 12hr 12/18/17 12/18/17 12/18/17 09:13 10:57 11:46 Temperature 98.2 F Pulse Rate 58 L Pulse Rate [ 57 L From Monitor] Respiratory 20 12 Rate Blood Pressure 180/83 O2 Sat by Pulse 96 100 100 Oximetry 12/18/17 12/18/17 12/18/17 14:02 14:24 14:39 Temperature 98.2 F 97.3 F L Pulse Rate 58 L 77 74 Pulse Rate [ From Monitor] Respiratory 12 16 18 Rate Blood Pressure 180/83 167/90 163/94 O2 Sat by Pulse 100 98 98 Oximetry 12/18/17 12/18/17 12/18/17 14:54 18:45 19:47 Temperature 98.5 F Pulse Rate 71 64 Pulse Rate [ From Monitor] Respiratory 19 20 28 H Rate Blood Pressure 162/84 144/59 O2 Sat by Pulse 97 96 Oximetry General appearance: Present: mild distress, well-nourished - EENT Eyes: PERRL, EOM intact ENT: hearing intact, clear oral mucosa Ears: bilateral: normal - Neck Neck: supple, normal ROM - Respiratory Respiratory effort: normal Respiratory: bilateral: CTA - Breasts Breasts: deferred - Cardiovascular Rhythm: regular Heart Sounds: Present: S1 & S2. Absent: gallop, rub Extremities: pulses intact, No edema, normal color, Full ROM - Gastrointestinal General gastrointestinal: Present: soft, non-tender, non-distended, normal bowel sounds Rectal Exam: deferred - Genitourinary Female genitourinary: deferred - Integumentary Integumentary: clear, warm, dry - Musculoskeletal Musculoskeletal: 1, strength equal bilaterally - Neurologic Neurologic: moves all extremities - Psychiatric Psychiatric: memory intact, appropriate mood/affect, intact judgment & insight - Labs CBC & Chem 7: 12/15/17 15:21 12/17/17 10:52
[2017-12-19] MEDS: NACL 0.9% IV SCH (02:45)
[2017-12-19] MEDS: ZOVIRAX IV SCH (02:45)
[2017-12-19] MEDS: SODIUM CHLORIDE FLUSH SYRINGE 10 ML IV SCH ×2 (05:08→18:34)
[2017-12-19] MEDS ORDERED: PROTONIX PO SCH (10:00)
[2017-12-19] MEDS: PERCOCET 5/325 PO PRN ×2 (10:34→17:55)
[2017-12-19] MEDS ORDERED: LOPRESSOR PO SCH (11:00)
[2017-12-19] MEDS ORDERED: NORVASC PO SCH (11:00)
[2017-12-19 11:26] LABS: BUN/Creatinine Ratio 18; Blood Urea Nitrogen 11 mg/dL (7-17); Calcium 9.2 mg/dL (8.4-10.2); Hemolysis Index 10
[2017-12-19 15:07] VITALS: BP 174/86
--- NOTE | 2017-12-19 15:51 | Progress Note ---
Assessment and Plan - Patient Problems (1) Abdominal pain Current Visit: Yes Status: Acute Plan to address problem: pain control. awaiting eventual removal of the IVC filter when surgically safe. (2) Cholelithiasis Current Visit: Yes Status: Acute Plan to address problem: supportive care. GI/vascular team approach awaited. (3) S/P insertion of IVC (inferior vena caval) filter Current Visit: Yes Status: Acute Plan to address problem: vascular on board. (4) H/O deep venous thrombosis Current Visit: Yes Status: Acute Plan to address problem: not currently active. (5) History of pulmonary embolism Current Visit: Yes Status: Acute Plan to address problem: supportive care, not currently active. (6) Shingles rash Current Visit: Yes Status: Acute Plan to address problem: tx with antiviral/anti inflammatory. (7) Chronic leukemia Current Visit: Yes Status: Acute Plan to address problem: continue with oral treatment. Subjective Date of service: 12/19/17 Interval history: Patient seen/examined, case d/w her. Notes/record reviewed.Will follow GI/ Vascular.continue to tx shingles. Patient seen/examined, resting in bed, labs reviewed, and the notes. will follow your plans. Patient seen/examined, records /labs reviewed, case d/w patient, will follow all the recommendations. patient seen/examined, resting in bed,vss, afebrile.Crystalave spoken to the nurse, to make sure she gets all the follow up docs numbers before d/c. will give K+ tab before d/c. Objective - Constitutional Vitals: Vital Signs - 12hr 12/19/17 12/19/17 12/19/17 04:23 07:34 11:18 Temperature 98.5 F 98.3 F Pulse Rate 62 68 Respiratory 24 16 Rate Blood Pressure 137/67 183/95 178/88 Blood Pressure [Left] O2 Sat by Pulse 99 98 Oximetry 12/19/17 12/19/17 12/19/17 12:33 12:37 15:01 Temperature 98.6 F 98.6 F 98.8 F Pulse Rate 59 L 60 53 L Respiratory 28 H 28 H 18 Rate Blood Pressure 156/62 174/86 Blood Pressure 156/52 [Left] O2 Sat by Pulse 98 98 98 Oximetry General appearance: Present: no acute distress, well-nourished - EENT Eyes: PERRL, EOM intact ENT: hearing intact, clear oral mucosa Ears: bilateral: normal - Neck Neck: supple, normal ROM - Respiratory Respiratory effort: normal Respiratory: bilateral: CTA - Breasts Breasts: deferred - Cardiovascular Rhythm: regular Heart Sounds: Present: S1 & S2. Absent: gallop, rub Extremities: pulses intact, No edema, normal color, Full ROM - Gastrointestinal General gastrointestinal: Present: soft, non-tender, non-distended, normal bowel sounds Rectal Exam: deferred - Genitourinary Female genitourinary: deferred - Integumentary Integumentary: clear, warm, dry - Musculoskeletal Musculoskeletal: 1, strength equal bilaterally - Neurologic Neurologic: moves all extremities - Psychiatric Psychiatric: memory intact, appropriate mood/affect, intact judgment & insight - Labs CBC & Chem 7: 12/15/17 15:21 12/19/17 10:47 Labs: Abnormal lab results 12/19/17 Range/Units 10:47 Potassium 3.3 L D (3.6-5.0) mmol/L Creatinine 0.6 L (0.7-1.2) mg/dL Glucose 106 H (65-100) mg/dL
[2017-12-19] MEDS ORDERED: K-DUR PO ONE (15:52)
[2017-12-19] MEDS ORDERED: PERCOCET 5/325 PO ONE (17:53)
--- NOTE | 2017-12-19 17:53 | Progress Note ---
Assessment and Plan Assessment and Plan - Patient Problems (1) CML (chronic myelocytic leukemia) Current Visit: Yes Status: Acute Plan to address problem: Oncology consulted, IVF resuscitation, pain control, continue current therapy (2) Herpes zoster Current Visit: Yes Status: Acute Qualifiers: Herpes zoster complications: unspecified herpes zoster complication Qualified Code(s): B02.8 - Zoster with other complications Plan to address problem: Pain control, Acyclovir therapy, (3) History of pulmonary embolism Current Visit: Yes Status: Acute Plan to address problem: S/P IVC filter placement, not currently on anticoagulation. Vascular consulted, X ray abdomen, (4) S/P insertion of IVC (inferior vena caval) filter Current Visit: Yes Status: Acute Plan to address problem: 5) cholelithiasis She has known symptomatic gallstones and this was being addressed by Dr. Preston. The plan was to perform an elective cholecystectomy once her Shingles resolve as the blistering extends into the surgeon would make incisions. Dr. Baeza recommends to first continue treating the shingles. Second vascular surgery will determine if the IVC filter needs to be removed based on the findings on the EGD that is planned. If they determine the IVC filter needs to be removed then will remove the gallbladder at the same operation. If vascular surgery determines the IVC filter does not need to be removed at this time then we will wait for her shingles to resolve and then set up an elective laparoscopic cholecystectomy. Will follow until which the final plan is determined. (6) DVT prophylaxis Current Visit: Yes Status: Acute Plan to address problem: SCD to BLE while in bed Subjective Date of service: 12/18/17 (late entry) Principal diagnosis: Herpes Zoster and IVC filter possible erosion Interval history: Sx better Objective - Constitutional Vitals: Vital Signs - 12hr 12/19/17 12/19/17 12/19/17 07:34 11:18 12:33 Temperature 98.3 F 98.6 F Pulse Rate 68 59 L Respiratory 16 28 H Rate Blood Pressure 183/95 178/88 156/62 Blood Pressure [Left] O2 Sat by Pulse 98 98 Oximetry 12/19/17 12/19/17 12:37 15:01 Temperature 98.6 F 98.8 F Pulse Rate 60 53 L Respiratory 28 H 18 Rate Blood Pressure 174/86 Blood Pressure 156/52 [Left] O2 Sat by Pulse 98 98 Oximetry General appearance: Present: no acute distress, well-nourished - EENT Eyes: PERRL, EOM intact ENT: hearing intact, clear oral mucosa Ears: bilateral: normal - Neck Neck: supple, normal ROM - Respiratory Respiratory effort: normal Respiratory: bilateral: CTA - Breasts Breasts: normal - Cardiovascular Rhythm: regular Heart Sounds: Present: S1 & S2. Absent: gallop, rub Extremities: pulses intact, No edema, normal color, Full ROM - Gastrointestinal General gastrointestinal: Present: soft, non-tender, non-distended, normal bowel sounds - Genitourinary Female genitourinary: normal - Integumentary Integumentary: clear, warm, dry - Musculoskeletal Musculoskeletal: 1, strength equal bilaterally - Neurologic Neurologic: moves all extremities - Psychiatric Psychiatric: memory intact, appropriate mood/affect, intact judgment & insight - Labs CBC & Chem 7: 12/15/17 15:21 12/19/17 10:47 Labs: Abnormal lab results 12/19/17 Range/Units 10:47 Potassium 3.3 L D (3.6-5.0) mmol/L Creatinine 0.6 L (0.7-1.2) mg/dL Glucose 106 H (65-100) mg/dL
--- NOTE | 2017-12-19 17:55 | Discharge Summary ---
Providers - Providers Date of Admission: 12/15/17 14:16 Date of discharge: 12/19/17 Attending physician: JEFFREY URBINA 12/15/17 13:43 Consult to Physician [CONS] Routine Comment: Consulting Provider: BHUMIKA TAVARES Physician Instructions: Reason For Exam: CML 12/15/17 13:46 Consult to Interventional Radiology [CONS] Routine Consulting Provider: CORRINA PARDO Reason For Exam: IVC filter migration Place consult to:: Amber Notified:: yes Phone number called:: [phone] If yes, spoke with:: Joaquimyara Time called:: 15:40 12/16/17 16:32 Consult to Physician [CONS] Routine Comment: Consulting Provider: VAL AHUJA Physician Instructions: Reason For Exam: FB duodenum-IVC filter tines Primary care physician: BHUMIKA TAVARES Hospitalization Condition: Fair Procedures: Date of procedure: 12/18/2017 EGD with endoscopy extending up to jejunum Endoscopist: Val Ahuja Pre-op diagnosis: abdominal pain, abnormal CT scan (rule out penetrating IVC filter) Post-op diagnosis: gastric ulcers, gastritis, unremarkable visualized small bowel Complications: No immediate complications Procedure: After consent was obtained, the patient was placed in the left lateral decubitus position. The fujinon pediatric colonoscope was inserted into the patient's mouth under direct vision, and advanced to the jejunum without difficulty. The patient tolerated the procedure fairly well. The views of the mucosa were good. Patient's vital signs were monitored continuously throughout the procedure. Findings: The esophagus appeared normal. There were a couple clean based ulcers in the antrum of the stomach. There was an area of moderately erythematous mucosa in the antrum. Biopsies were obtained (evaluate for H pylori, rule out dysplasia). Otherwise, the stomach appeared normal. The visualized portion of small bowel was unremarkable (extent to jejunum), without obvious infiltrating IVC filter or other lesions Impression: 1. Gastric ulcers (clean based) as above 2. Gastritis. Biopsies obtained. 3. Unremarkable visualized small bowel Recommendations: -follow-up pathology -PPI daily -avoid NSAIDs -repeat upper endoscopy in 2 months to assess for ulcer healing -further management per vascular/surgery Hospital course: - Patient Problems (1) CML (chronic myelocytic leukemia) Current Visit: Yes Status: Acute Plan to address problem: Oncology consulted, IVF resuscitation, pain control, continue current therapy (2) Herpes zoster Current Visit: Yes Status: Acute Qualifiers: Herpes zoster complications: unspecified herpes zoster complication Qualified Code(s): B02.8 - Zoster with other complications Plan to address problem: Pain control, Acyclovir therapy, (3) History of pulmonary embolism Current Visit: Yes Status: Acute Plan to address problem: S/P IVC filter placement, not currently on anticoagulation. Vascular consulted, X ray abdomen, (4) S/P insertion of IVC (inferior vena caval) filter Current Visit: Yes Status: Acute Plan to address problem: 5) cholelithiasis She has known symptomatic gallstones and this was being addressed by Dr. Preston. The plan was to perform an elective cholecystectomy once her Shingles resolve as the blistering extends into the surgeon would make incisions. Dr. Baeza recommends to first continue treating the shingles. Second vascular surgery will determine if the IVC filter needs to be removed based on the findings on the EGD that is planned. If they determine the IVC filter needs to be removed then will remove the gallbladder at the same operation. If vascular surgery determines the IVC filter does not need to be removed at this time then we will wait for her shingles to resolve and then set up an elective laparoscopic cholecystectomy. Will follow until which the final plan is determined. (6) DVT prophylaxis Current Visit: Yes Status: Acute Plan to address problem: SCD to BLE while in bed Disposition: DC-01 TO HOME OR SELFCARE Time spent for discharge: 33 minutes Core Measure Documentation - Palliative Care Palliative Care/ Comfort Measures: Not Applicable - Core Measures Any of the following diagnoses?: none Exam - Constitutional Vitals: Temp Pulse Resp BP Pulse Ox 98.8 F 53 L 18 174/86 98 12/19/17 15:01 12/19/17 15:01 12/19/17 15:01 12/19/17 15:01 12/19/17 15:01 General appearance: Present: no acute distress, well-nourished - EENT Eyes: Present: PERRL ENT: hearing intact, clear oral mucosa - Neck Neck: Present: supple, normal ROM - Respiratory Respiratory effort: normal Respiratory: bilateral: CTA - Cardiovascular Heart rate: 80 Rhythm: regular Heart Sounds: Present: S1 & S2. Absent: rub, click - Extremities Extremities: no ischemia, pulses intact, pulses symmetrical, No edema Peripheral Pulses: within normal limits - Abdominal General gastrointestinal: Present: soft, non-tender, non-distended, normal bowel sounds Female genitourinary: Present: normal - Integumentary Integumentary: Present: clear, warm, dry - Musculoskeletal Musculoskeletal: gait normal, strength equal bilaterally - Psychiatric Psychiatric: appropriate mood/affect, intact judgment & insight - Neurologic Neurologic: CNII-XII intact, moves all extremities - Allied Health Allied health notes reviewed: nursing, case management Plan Activity: no restrictions Diet: low cholesterol, low salt Follow up with: BHUMIKA TAVARES DO [Primary Care Provider] - 7 Days BRENDA BAEZA MD [Staff Physician] - 7 Days CORRINA AGUIRRE MD [Staff Physician] - 7 Days
== END 2017-12-19 19:00 | disposition home or self-care (01) | DRG 384 ==
LOC: UNDOADMIN 12:31 → 3A 12:31
PROVIDERS: ADMIT Internal Medicine; ATTEND Internal Medicine
PROC: 0DB78ZX Excision of Stomach, Pylorus, Via Natural or Artificial Opening Endoscopic, Diagnostic (ICD-10-PCS; principal; 2017-12-18)
DX: K25.9 Gastric ulcer, unspecified as acute or chronic, without hemorrhage or perforation (principal); B02.8 Zoster with other complications; K80.20 Calculus of gallbladder without cholecystitis without obstruction; C92.10 Chronic myeloid leukemia, BCR/ABL-positive, not having achieved remission; M54.9 Dorsalgia, unspecified; K29.70 Gastritis, unspecified, without bleeding; I10 Essential (primary) hypertension; G89.4 Chronic pain syndrome; Z86.718 Personal history of other venous thrombosis and embolism; Z86.711 Personal history of pulmonary embolism; Z88.0 Allergy status to penicillin; Z79.899 Other long term (current) drug therapy; Z90.710 Acquired absence of both cervix and uterus
CPT/HCPCS: 36415; 74018; 80048; 80053; 85025; 85610; 88305; 88342; J0133; J2270; J2704; J2920; J7030; J7050

== ENCOUNTER 2018-01-15 08:22 | Outpatient (CLI) | payer MEDICAID ==
--- NOTE | 2018-01-15 12:50 | Nuclear Medicine Report ---
HEPATOBILIARY SCAN: History: Nausea, right upper quadrant pain and vomiting. Comparison: No comparison ultrasound. Correlation is made with a CTA abdomen and pelvis performed 09/30/17 which demonstrates a contracted gallbladder filled with stones. Following the injection of the radionuclide, serial scanning was obtained over the right upper quadrant. There is nonvisualization of the gallbladder up to 2.5 hours. There is normal transit of the radiotracer through the central biliary ducts, common bile duct and bowel loops. IMPRESSION: Nonvisualization of the gallbladder on HIDA scan. Acute cholecystitis cannot be excluded. Please correlate with the clinical presentation of the patient.
== END 2018-01-15 08:23 | disposition home or self-care (01) ==
LOC: NM 08:22
PROVIDERS: ATTEND Surgery
DX: K80.00 Calculus of gallbladder with acute cholecystitis without obstruction (principal)
CPT/HCPCS: 78226; A9537

== ENCOUNTER 2018-03-19 07:39 | Emergency (ER) | payer MEDICAID ==
[2018-03-19] MEDS ORDERED: NACL 0.9% 1000 ML 1,000 ML IV ONE (07:49)
[2018-03-19 08:13] LABS: Basophils % (Auto) 0.5 % (0.0-1.8); Eosinophils # (Auto) 0.1 K/mm3 (0.0-0.4); Eosinophils % (Auto) 2.6 % (0.0-4.3); Hematocrit 37.3 % (30.3-42.9); Hemoglobin 12.4 gm/dl (10.1-14.3); Lymphocytes % (Auto) 22.2 % (13.4-35.0); Mean Corpuscular HGB Conc 33 % (30-34); Mean Corpuscular Hemoglobin 29 pg (28-32); Mean Corpuscular Volume 88 fl (79-97); Monocytes # (Auto) 0.4 K/mm3 (0.0-0.8); Monocytes % (Auto) 10.3 % (0.0-7.3); Platelet Count 203 K/mm3 (140-440); Red Blood Count 4.27 M/mm3 (3.65-5.03); Red Cell Distribution Width 15.3 % (13.2-15.2)
[2018-03-19 08:29] LABS: Alanine Aminotransferase 16 units/L (7-56); Albumin 3.9 g/dL (3.9-5); BUN/Creatinine Ratio 22; Blood Urea Nitrogen 13 mg/dL (7-17); Calcium 9.3 mg/dL (8.4-10.2); Hemolysis Index 2
[2018-03-19 08:35] LABS: Bilirubin,Urine NEG (Negative); Blood,Urine MOD (Negative); Color,Urine Yellow (Yellow); Mucus,Urine FEW /HPF; Urobilinogen,Urine < 2.0 mg/dL (<2.0)
[2018-03-19] MEDS ORDERED: MORPHINE IV ONE (08:40)
[2018-03-19] MEDS ORDERED: ZOFRAN IV ONE (08:40)
--- NOTE | 2018-03-19 08:59 | Emergency Department Report ---
ED Abdominal Pain HPI - General Chief Complaint: Abdominal Pain Stated Complaint: ABD PAIN Time Seen by Provider: 03/19/18 08:32 Source: patient Mode of arrival: Ambulatory Limitations: No Limitations - History of Present Illness Initial Comments: 57-year-old female with past medical history of leukemia currently on a daily oral chemotherapeutic pill, hypertension, previous hysterectomy presents to the also complains of left lower quadrant and left-sided abdominal pain 3 weeks. Pain is constant, and myself simultaneously, with a palpation and movement. She denies fever, nausea, vomiting, melena, hematochezia, or diarrhea. Positive dysuria reported without hematuria. Patient has been seen by her primary care doctor and started on Cipro for UTI. Patient reports the symptoms were improving. She finished the medication 2 weeks ago and pain has returned since completing medication. Patient has a known IVC filter due to her previous history of DVT. She states that the filter has migrated in eroding into her intestine and she also has known gallstones. She states she is currently undergoing medical clearance and is scheduled for outpatient echocardiogram so that she may have surgery for both issues. PMD: Dr Holbrook - Related Data Home Medications Medication Instructions Recorded Confirmed Last Taken Sprycel 100 mg PO DAILY 12/15/17 03/19/18 Unknown ALPRAZolam [Xanax TAB] 0.25 mg PO DAILY PRN 03/19/18 03/19/18 Unknown Oxycodone HCl/Acetaminophen 1 each PO Q6HR PRN 03/19/18 03/19/18 Unknown [Percocet 10/325 mg] Venlafaxine HCl [Venlafaxin ER] 75 mg PO QDAY 03/19/18 03/19/18 Unknown Previous Rx's Medication Instructions Recorded Last Taken Type Polyethylene Glycol 3350 [Miralax 17 gm PO QDAY PRN #7 packet 03/19/18 Unknown Rx 3350] Allergies Allergy/AdvReac Type Severity Reaction Status Date / Time Penicillins Allergy Swelling Verified 03/19/18 07:44 ED Review of Systems ROS: Stated complaint: ABD PAIN Other details as noted in HPI Comment: All other systems reviewed and negative ED Past Medical Hx - Past Medical History Hx Hypertension: Yes Hx Congestive Heart Failure: No Hx Diabetes: No Hx Asthma: No Hx COPD: No Hx HIV: No Additional medical history: leukemia - Surgical History Additional Surgical History: PARTIAL HYSTO - Social History Smoking Status: Never Smoker Substance Use Type: None - Medications Home Medications: Home Medications Medication Instructions Recorded Confirmed Last Taken Type Sprycel 100 mg PO DAILY 12/15/17 03/19/18 Unknown History ALPRAZolam [Xanax TAB] 0.25 mg PO DAILY PRN 03/19/18 03/19/18 Unknown History Oxycodone HCl/Acetaminophen 1 each PO Q6HR PRN 03/19/18 03/19/18 Unknown History [Percocet 10/325 mg] Polyethylene Glycol 3350 [Miralax 17 gm PO QDAY PRN #7 packet 03/19/18 Unknown Rx 3350] Venlafaxine HCl [Venlafaxin ER] 75 mg PO QDAY 03/19/18 03/19/18 Unknown History ED Physical Exam - General Limitations: No Limitations - Other Other exam information: General: No limitations, patient is alert in no acute distress Head exam: Atraumatic, normocephalic Eyes exam: Normal appearance, pupils equal reactive to light, extraocular movements intact ENT: Moist mucous membrane, normal oropharynx Neck exam: Normal inspection, full range of motion, no meningismus nontender Respiratory exam: Clear to auscultation bilateral, no wheezes, rales, crackles Cardiovascular: Normal rate and rhythm, normal heart sounds Abdomen: Soft, nondistended, left lower quadrant tenderness, with normal bowel sounds, no rebound, or guarding Extremity: Full range of motion normal inspection no deformity Back: Normal Inspection, full range of motion, no tenderness Neurologic: Alert, oriented x3, cranial nerves intact, no motor or sensory deficit Psychiatric: normal affect, normal mood Skin: Warm, dry, intact ED Course Vital Signs 03/19/18 03/19/18 03/19/18 07:45 08:21 12:12 Temperature 98.6 F 98.5 F Pulse Rate 80 67 65 Respiratory 18 18 16 Rate Blood Pressure 232/116 Blood Pressure 168/87 155/83 [Left] O2 Sat by Pulse 97 99 98 Oximetry - Consultations Consultation #1: 03/19/18 13:00 Dr Holbrook paged at 1:[address] Briceno is covering. I was attempting to provide an update however, no call back at this time. Patient will be discharged home with stool softener and encouraged to follow up with primary care to encourage her current workup and treatment ED Medical Decision Making - Lab Data Result diagrams: 03/19/18 07:55 03/19/18 07:55 Lab Results 03/19/18 03/19/18 03/19/18 Range/Units 07:55 07:55 Unknown WBC 4.3 L (4.5-11.0) K/mm3 RBC 4.27 (3.65-5.03) M/mm3 Hgb 12.4 (10.1-14.3) gm/dl Hct 37.3 (30.3-42.9) % MCV 88 (79-97) fl MCH 29 (28-32) pg MCHC 33 (30-34) % RDW 15.3 H (13.2-15.2) % Plt Count 203 (140-440) K/mm3 Lymph % (Auto) 22.2 (13.4-35.0) % [place] % (Auto) 10.3 H (0.0-7.3) % Eos % (Auto) 2.6 (0.0-4.3) % Baso % (Auto) 0.5 (0.0-1.8) % Lymph # 1.0 L (1.2-5.4) K/mm3 [place] # 0.4 (0.0-0.8) K/mm3 Eos # 0.1 (0.0-0.4) K/mm3 Baso # 0.0 (0.0-0.1) K/mm3 Seg Neutrophils % 64.4 (40.0-70.0) % Seg Neutrophils # 2.8 (1.8-7.7) K/mm3 Sodium 142 (137-145) mmol/L Potassium 3.4 L (3.6-5.0) mmol/L Chloride 103.7 (98-107) mmol/L Carbon Dioxide 25 (22-30) mmol/L Anion Gap 17 mmol/L BUN 13 (7-17) mg/dL Creatinine 0.6 L (0.7-1.2) mg/dL Estimated GFR > 60 ml/min BUN/Creatinine Ratio 22 % Glucose 97 (65-100) mg/dL Calcium 9.3 (8.4-10.2) mg/dL Total Bilirubin 0.40 (0.1-1.2) mg/dL AST 19 (5-40) units/L ALT 16 (7-56) units/L Alkaline Phosphatase 119 (35-129) units/L Total Protein 7.6 (6.3-8.2) g/dL Albumin 3.9 (3.9-5) g/dL Albumin/Globulin Ratio 1.1 % Urine Color Yellow (Yellow) Urine Turbidity Clear (Clear) Urine pH 6.0 (5.0-7.0) Ur Specific [place] 1.014 (1.003-1.030) Urine Protein 30 mg/dl (Negative) mg/dL Urine Glucose (UA) Neg (Negative) mg/dL Urine Ketones Neg (Negative) mg/dL Urine Blood Mod (Negative) Urine Nitrite Neg (Negative) Urine Bilirubin Neg (Negative) Urine Urobilinogen < 2.0 (<2.0) mg/dL Ur Leukocyte Esterase Neg (Negative) Urine WBC (Auto) 1.0 (0.0-6.0) /HPF Urine RBC (Auto) 4.0 (0.0-6.0) /HPF U Epithel Cells (Auto) 2.0 (0-13.0) /HPF Urine Mucus Few /HPF - Radiology Data Radiology results: report reviewed ct a/p IV contrast: gallstones, mild constipation, naf (verbal from radiology) CT ABDOMEN PELVIS WITH CONTRAST: HISTORY: Left lower quadrant abdominal pain, leukemia. COMPARISON: none. TECHNIQUE: Helical CT in 1.25mm intervals following IV contrast. Sagittal and coronal reconstructions. FINDINGS: Lung bases: Calcified granuloma is noted at the left lung base. No suspicious nodule, infiltrate or effusion. Borderline to mild cardiomegaly. Liver: Normal. Biliary system: The gallbladder is contracted and contains multiple partially calcified stones. No inflammatory changes or biliary dilatation. Pancreas: Normal. Spleen: Normal size. Scattered splenic calcified granulomas are noted. Kidneys/ureters/bladder: Normal. Adrenal glands: 1 cm low density nodule in the left adrenal gland probably represents an adenoma. The right adrenal gland is normal. Aorta: Normal. An IVC filter is in place. Intestines: Mild fecal retention. No evidence for obstruction or focal inflammation. Appendix: Normal. Pelvic viscera: Normal. Ascites: None. Adenopathy: None. Musculoskeletal: Mild thoracolumbar spondylosis. No fracture or suspicious bony lesion. IMPRESSION: No acute process is identified. Cholelithiasis. Mild fecal retention. Borderline to mild cardiomegaly. - Medical Decision Making CT pelvis, labs, and urine do not show any cause of patient's ongoing abdominal pain. po kcl given for mild hypokalemia Patient will be discharged home with medications for constipation and PMD follow -up. I was unable to get ahold of her primary care doctor prior to discharge. - Differential Diagnosis diverticulitis, UTI, renal colic, cancer Critical Care Time: No Critical care attestation.: If time is entered above; I have spent that time in minutes in the direct care of this critically ill patient, excluding procedure time. ED Disposition Clinical Impression: Cholelithiasis, Abdominal pain, Constipation, CML (chronic myelocytic leukemia) Disposition: TO HOME OR SELFCARE Is pt being admited?: No Does the pt Need Aspirin: No Condition: Stable Instructions: Abdominal Pain (ED), Constipation (ED) Additional Instructions: Take the medication as needed for constipation. Follow up with you doctor to continue outpatient workup and treatment. Return if symptoms worsen as indicated by the discharge instructions. Prescriptions: Polyethylene Glycol 3350 [Miralax 3350] 17 gm PO QDAY PRN #7 packet PRN Reason: Constipation Referrals: BHUMIKA TAVARES DO [Staff Physician] - 3-5 Days Time of Disposition: 13:02
--- NOTE | 2018-03-19 12:09 | Cat Scan Report ---
CT ABDOMEN PELVIS WITH CONTRAST: HISTORY: Left lower quadrant abdominal pain, leukemia. COMPARISON: none. TECHNIQUE: Helical CT in 1.25mm intervals following IV contrast. Sagittal and coronal reconstructions. FINDINGS: Lung bases: Calcified granuloma is noted at the left lung base. No suspicious nodule, infiltrate or effusion. Borderline to mild cardiomegaly. Liver: Normal. Biliary system: The gallbladder is contracted and contains multiple partially calcified stones. No inflammatory changes or biliary dilatation. Pancreas: Normal. Spleen: Normal size. Scattered splenic calcified granulomas are noted. Kidneys/ureters/bladder: Normal. Adrenal glands: 1 cm low density nodule in the left adrenal gland probably represents an adenoma. The right adrenal gland is normal. Aorta: Normal. An IVC filter is in place. Intestines: Mild fecal retention. No evidence for obstruction or focal inflammation. Appendix: Normal. Pelvic viscera: Normal. Ascites: None. Adenopathy: None. Musculoskeletal: Mild thoracolumbar spondylosis. No fracture or suspicious bony lesion. IMPRESSION: No acute process is identified. Cholelithiasis. Mild fecal retention. Borderline to mild cardiomegaly.
[2018-03-19 12:13] VITALS: BP 155/83
[2018-03-19] MEDS ORDERED: K-DUR PO ONE ×2 (12:55→13:17)
== END 2018-03-19 13:24 | disposition home or self-care (01) ==
LOC: ED 07:39
DX: K80.20 Calculus of gallbladder without cholecystitis without obstruction (principal); K59.00 Constipation, unspecified; C92.10 Chronic myeloid leukemia, BCR/ABL-positive, not having achieved remission; I10 Essential (primary) hypertension; Z88.0 Allergy status to penicillin
CPT/HCPCS: 36415; 74177; 80053; 81001; 85025; 96374; 96375; 99284; J2270; J2405; Q9967

== ENCOUNTER 2018-05-14 05:56 | Day surgery (SDC) | payer MEDICAID ==
[2018-05-14] MEDS ORDERED: NACL 0.9% 1000 ML 1,000 ML IV SCH (06:00)
[2018-05-14] MEDS ORDERED: VANCOMYCIN/NS 1 GM/250 ML 1 GM/250 ML BAG IV NR (06:00)
[2018-05-14 07:06] LABS: Basophils % (Auto) 0.4 % (0.0-1.8); Eosinophils # (Auto) 0.1 K/mm3 (0.0-0.4); Eosinophils % (Auto) 1.8 % (0.0-4.3); Hematocrit 36.1 % (30.3-42.9); Hemoglobin 11.9 gm/dl (10.1-14.3); Lymphocytes % (Auto) 21.5 % (13.4-35.0); Mean Corpuscular HGB Conc 33 % (30-34); Mean Corpuscular Hemoglobin 29 pg (28-32); Mean Corpuscular Volume 87 fl (79-97); Monocytes # (Auto) 0.5 K/mm3 (0.0-0.8); Platelet Count 205 K/mm3 (140-440); Red Blood Count 4.17 M/mm3 (3.65-5.03); Red Cell Distribution Width 15.2 % (13.2-15.2)
[2018-05-14 07:16] LABS: INR 0.93 (0.87-1.13)
[2018-05-14 07:17] LABS: Partial Thromboplastin Time 23.5 Sec. (24.2-36.6)
[2018-05-14 07:18] LABS: BUN/Creatinine Ratio 13; Blood Urea Nitrogen 8 mg/dL (7-17); Hemolysis Index 1
[2018-05-14] MEDS ORDERED: VANCOMYCIN 1,750 MG in NACL 0.9% 500 ML 500 ML IV ONE (07:45)
[2018-05-14] MEDS ORDERED: HEPARIN 10,000 UNITS/10 ML ONE (08:28)
[2018-05-14] MEDS ORDERED: HEPARIN/NS 5000 UNIT/500ML(CATH LAB) 1,000 ML IR ONE (08:28)
[2018-05-14] MEDS ORDERED: XYLOCAINE 2% INFILTRATI ONE (08:29)
[2018-05-14] MEDS ORDERED: NACL 0.9% 500 ML 0 ML ONE (08:29)
[2018-05-14] MEDS: VERSED ONE ×2 (09:02→09:11)
[2018-05-14] MEDS: SUBLIMAZE ONE ×4 (09:02→09:58)
[2018-05-14] MEDS: HEPARIN 10,000 UNITS/10 ML ONE ×2 (09:24→09:27)
[2018-05-14] MEDS ORDERED: VERSED ONE (09:38)
--- NOTE | 2018-05-14 10:19 | Short Stay Summary ---
Short Stay Documentation Date of service: 05/14/18 Narrative H&P: See H&P - History H&P: obtained from office - Allergies and Medications Current Medications: Allergies Penicillins Allergy (Intermediate, Verified 05/14/18 06:26) Swelling rash Home Medications Medication Instructions Recorded Confirmed Last Taken Type Sprycel 100 mg PO DAILY 12/15/17 03/19/18 05/13/18 History ALPRAZolam [Xanax TAB] 0.25 mg PO DAILY PRN 03/19/18 03/19/18 2 Days Ago History ~05/12/18 Oxycodone HCl/Acetaminophen 1 each PO Q6HR PRN 03/19/18 05/14/18 05/12/18 History [Percocet 10/325 mg] Polyethylene Glycol 3350 [Miralax 17 gm PO QDAY PRN #7 packet 03/19/18 Unknown Rx 3350] Venlafaxine HCl [Venlafaxin ER] 75 mg PO PRN 03/19/18 05/14/18 Unknown History Metoprolol [Lopressor TAB] 50 mg PO BID 05/14/18 05/14/18 05/14/18 04:30 History amLODIPine [Norvasc] 10 mg PO DAILY 05/14/18 05/14/18 05/14/18 04:30 History Active Medications Sodium Chloride (Nacl 0.9% 1000 Ml) 1,000 mls @ 42 mls/hr IV DIRECT AKASH - Brief post op/procedure progress note Date of procedure: 05/14/18 Pre-op diagnosis: Indwelling IVC Filter with Abdominal Pain Post-op diagnosis: same Procedure: 1. Ultrasound Guided Access Right Internal Jugular Charisse 2. Inferior Vena Cavagram 3. Unsuccessful Inferior Vena Cava Filter Retrieval Attempt 4. Radiologic Supervision with Interpretation Anesthesia: local, other (i.v. Sedation) Surgeon: TANESHA WHITTAKER Harp Action Assembler: CORRINA AGUIRRE Estimated blood loss: minimal Pathology: none Condition: stable - Disposition Condition at discharge: Good Disposition: DC-01 TO HOME OR SELFCARE Short Stay Discharge Plan Activity: no restrictions Wound: remove dressing (24 hours) Follow up with: TANESHA WHITTAKER MD [Staff Physician] - 14 Days
--- NOTE | 2018-05-14 10:23 | Operative Report ---
Operative Report Operative Report: Date of Procedure: 05/14/2018 Pre-operative Diagnosis: Indwelling IVC Filter with Abdominal Pain Post-operative Diagnosis: Same Procedure(s): 1. Ultrasound Guided Access Right Internal Jugular Charisse 2. Inferior Vena Cavagram 3. Unsuccessful Inferior Vena Cava Filter Retrieval Attempt 4. Radiologic Supervision with Interpretation Surgeon: Rene Murguia M.D. Fermentation Scientist: Raphael Benitez M.D. Anesthesia: [] EBL: [] Counts: [] Complications: [] Condition: [] Findings: [] Specimen: [] Indication: [] Description of Procedure: []
[2018-05-14] MEDS ORDERED: PERCOCET 5/325 PO PRN (10:42)
[2018-05-14 12:37] VITALS: BP 136/86
== END 2018-05-14 12:45 | disposition home or self-care (01) ==
LOC: CATHLABREC 05:56
PROVIDERS: ATTEND Surgery Vascular Surgery
DX: Z45.89 Encounter for adjustment and management of other implanted devices (principal); C95.10 Chronic leukemia of unspecified cell type not having achieved remission; I10 Essential (primary) hypertension; M19.90 Unspecified osteoarthritis, unspecified site; Z90.710 Acquired absence of both cervix and uterus; Z79.899 Other long term (current) drug therapy; Z79.01 Long term (current) use of anticoagulants; Z88.0 Allergy status to penicillin; Z86.718 Personal history of other venous thrombosis and embolism; Z86.711 Personal history of pulmonary embolism; Z95.828 Presence of other vascular implants and grafts
CPT/HCPCS: 36010; 36415; 75825; 76937; 80048; 85025; 85610; 85730; C1769; C1773; C1887; J1644; J2250; J3010; J3370; J7030; J7040; Q9967

== ENCOUNTER 2018-07-01 20:01 | Emergency (ER) | payer MEDICAID ==
[2018-07-01] MEDS ORDERED: TYLENOL PO ONE (21:33)
--- NOTE | 2018-07-01 22:57 | XRay Report ---
FINAL REPORT EXAM: XR HAND 2V RT HISTORY: right index finger pain TECHNIQUE: Frontal and lateral views right hand Comparison: None FINDINGS: There is no evidence of fracture or subluxation. There is evidence of degenerative change of the interphalangeal joints of all digits and of the thumb carpal metacarpal joint. The soft tissues are unremarkable. IMPRESSION: 1. No evidence of fracture or subluxation. 2. Degenerative joint change.
--- NOTE | 2018-07-01 23:01 | XRay Report ---
FINAL REPORT EXAM: XR TIBIA FIBULA 2V RT HISTORY: right lower leg pain TECHNIQUE: Frontal and lateral views right tibia and fibula Comparison: None FINDINGS: There is no definite plain film evidence of acute fracture and no evidence of subluxation. There appears to be degenerative change of the medial compartment of the tibiofemoral joint with joint space loss. There appears to be degenerative change of the patellofemoral joint with joint space loss. The patella is high-riding. There is smooth periosteal change involving the fibula which can be seen with chronic venous stasis. IMPRESSION: 1. No evidence of fracture or subluxation. 2. Appearance of degenerative joint change. 3. Periosteal changes suggestive of chronic venous stasis. If further imaging is required, CT or MRI may be helpful.
--- NOTE | 2018-07-01 23:53 | Emergency Department Report ---
ED Fall HPI - General Chief Complaint: Fall Stated Complaint: FALL PAIN Time Seen by Provider: 07/01/18 23:24 Source: patient Mode of arrival: Ambulatory - History of Present Illness Initial Comments: This is a 58-year-old female nontoxic, well nourished in appearance, no acute signs of distress presents to the ED with c/o of right leg/knee and right hand pain status post fall that occurred today. Patient stated she was in a store and tripped on a cat fish and landed on her knee and hand area. Patient denies back pain or neck pain. Patient denies any head trauma. Patient denies any chest pain, shortness of breath, fever, chills, nausea, vomiting, headache, stiff neck, numbness or tingling. Patient stated allergies to PCN and Motrin. MD Complaint: fall -: This evening Fall From: standing Fall Witnessed: no Loss of Consciousness: none Prolonged Down Time?: no Symptoms Prior to Fall: none Location - Extremities: Right: Hand, Knee, Leg Severity: mild Severity scale (0 -10): 8 Quality: aching Context: tripped/slipped Associated Symptoms: denies. denies: headache, neck pain, numbness, chest paint , shortness of breath, abdominal pain, hematuria, unable to walk, lightheaded, vertigo, confusion - Related Data Home Medications Medication Instructions Recorded Confirmed Last Taken Sprycel 100 mg PO DAILY 12/15/17 03/19/18 05/13/18 ALPRAZolam [Xanax TAB] 0.25 mg PO DAILY PRN 03/19/18 03/19/18 2 Days Ago ~05/12/18 Oxycodone HCl/Acetaminophen 1 each PO Q6HR PRN 03/19/18 05/14/18 05/12/18 [Percocet 10/325 mg] Venlafaxine HCl [Venlafaxin ER] 75 mg PO PRN 03/19/18 05/14/18 Unknown Metoprolol [Lopressor TAB] 50 mg PO BID 05/14/18 05/14/18 05/14/18 04:30 amLODIPine [Norvasc] 10 mg PO DAILY 05/14/18 05/14/18 05/14/18 04:30 Previous Rx's Medication Instructions Recorded Last Taken Type Polyethylene Glycol 3350 [Miralax 17 gm PO QDAY PRN #7 packet 03/19/18 Unknown Rx 3350] Acetaminophen 500 mg PO Q8H PRN #20 tablet 07/01/18 Unknown Rx Allergies Allergy/AdvReac Type Severity Reaction Status Date / Time Penicillins Allergy Intermediate Swelling Verified 05/14/18 06:26 ED Review of Systems ROS: Stated complaint: FALL PAIN Other details as noted in HPI Constitutional: denies: chills, fever Eyes: denies: eye pain, eye discharge, vision change ENT: denies: ear pain, throat pain Respiratory: denies: cough, shortness of breath, wheezing Cardiovascular: denies: chest pain, palpitations Endocrine: no symptoms reported Gastrointestinal: denies: abdominal pain, nausea, diarrhea Genitourinary: denies: urgency, dysuria, discharge Musculoskeletal: denies: back pain, joint swelling, arthralgia Skin: denies: rash, lesions Neurological: denies: headache, weakness, paresthesias Psychiatric: denies: anxiety, depression Hematological/Lymphatic: denies: easy bleeding, easy bruising ED Past Medical Hx - Past Medical History Hx Hypertension: Yes Hx Heart Attack/AMI: No Hx Congestive Heart Failure: No Hx Diabetes: No Hx Deep Vein Thrombosis: Yes Hx Pulmonary Embolism: Yes (IVC filter place 2010) Hx Arthritis: Yes Hx Asthma: No Hx COPD: No Hx HIV: No Additional medical history: leukemia - Surgical History Additional Surgical History: PARTIAL HYSTERECTOMY - Social History Smoking Status: Never Smoker Substance Use Type: None - Medications Home Medications: Home Medications Medication Instructions Recorded Confirmed Last Taken Type Sprycel 100 mg PO DAILY 12/15/17 03/19/18 05/13/18 History ALPRAZolam [Xanax TAB] 0.25 mg PO DAILY PRN 03/19/18 03/19/18 2 Days Ago History ~05/12/18 Oxycodone HCl/Acetaminophen 1 each PO Q6HR PRN 03/19/18 05/14/18 05/12/18 History [Percocet 10/325 mg] Polyethylene Glycol 3350 [Miralax 17 gm PO QDAY PRN #7 packet 03/19/18 Unknown Rx 3350] Venlafaxine HCl [Venlafaxin ER] 75 mg PO PRN 03/19/18 05/14/18 Unknown History Metoprolol [Lopressor TAB] 50 mg PO BID 08/05/14/18 05/14/18 04:30 History amLODIPine [Norvasc] 10 mg PO DAILY 05/14/18 05/14/18 05/14/18 04:30 History Acetaminophen 500 mg PO Q8H PRN #20 tablet 07/01/18 Unknown Rx ED Physical Exam - General Limitations: No Limitations General appearance: alert, in no apparent distress - Head Head exam: Present: atraumatic, normocephalic - Eye Eye exam: Present: normal appearance - ENT ENT exam: Present: mucous membranes moist - Neck Neck exam: Present: normal inspection - Respiratory Respiratory exam: Present: normal lung sounds bilaterally. Absent: respiratory distress - Cardiovascular Cardiovascular Exam: Present: regular rate, normal rhythm, normal heart sounds. Absent: bradycardia, tachycardia, irregular rhythm - GI/Abdominal GI/Abdominal exam: Present: soft, normal bowel sounds. Absent: distended, tenderness, guarding, rebound, rigid, diminished bowel sounds - Extremities Exam Extremities exam: Present: normal inspection, full ROM, tenderness, normal capillary refill. Absent: joint swelling - Expanded Upper Extremity Exam Right General: Present: normal inspection Shoulder Exam: Present: normal inspection, full ROM. Absent: tenderness, swelling Upper Arm exam: Present: normal inspection, full ROM. Absent: tenderness, swelling Elbow exam: Present: normal inspection, full ROM. Absent: tenderness, swelling Forearm Wrist exam: Present: normal inspection, full ROM. Absent: tenderness, swelling, laceration, ecchymosis, deformity, dislocation, erythema, tenderness over anatomical snuff box, pain with axial thumb loading Hand Wrist exam: Present: normal inspection, full ROM, tenderness. Absent: swelling, abrasion, laceration, ecchymosis, deformity, crepidus, dislocation, erythema, amputation, nail avulsion, subungual hematoma Hand L/R Back: 1 - pain here Neuro motor exam: Present: wrist extension intact, thumb opposition intact, thumb IP flexion intact, thumb adduction intact, fingers 2-5 abduction intact Neurosensory exam: Present: 2-point discrimination, radial nerve intact, ulnar nerve intact, median nerve intact Vascular: Present: vascular compromise, normal capillary refill, radial pulse, brachial pulse, ulnar pulse - Expanded Lower Extremity Exam Right Hip exam: Present: normal inspection, full ROM, external rotation, internal rotation, pelvic stability. Absent: tenderness, swelling, abrasion, laceration , ecchymosis, deformity, crepidus, dislocation, erythema, shortening Upper Leg exam: Present: normal inspection, full ROM. Absent: tenderness, swelling Knee exam: Present: normal inspection, full ROM, tenderness, full knee extension. Absent: swelling, abrasion, laceration, ecchymosis, deformity, crepidus, dislocation, erythema, effusion, pain w/ pronation/supination, posterior draw sign, pain/laxity with valgus, pain/laxity with varus Lower Leg exam: Present: normal inspection, full ROM, tenderness. Absent: swelling, abrasion, laceration, ecchymosis, deformity, crepidus, dislocation, erythema, palpable cord, Jacy's sign Ankle exam: Present: normal inspection, full ROM. Absent: tenderness, swelling Foot/Toe exam: Present: normal inspection, full ROM. Absent: tenderness, swelling Neuro vascular tendon exam: Present: no vascular compromise. Absent: pulse deficit, abnormal cap refill, motor deficit, sensory deficit, tendon deficit, extremity cold to touch, pallor, abnormal 2-point discrimination, decreased fine /light touch, foot drop, peroneal nerve deficit, significant pain with passive ROM of distal joint Gait: Positive: observed and limited by pain 1 - pain here - Back Exam Back exam: Present: normal inspection, full ROM. Absent: tenderness, CVA tenderness (R), CVA tenderness (L), muscle spasm, paraspinal tenderness, vertebral tenderness, rash noted - Neurological Exam Neurological exam: Present: alert, oriented X3, normal gait - Psychiatric Psychiatric exam: Present: normal affect, normal mood - Skin Skin exam: Present: warm, dry, intact, normal color. Absent: rash ED Course Vital Signs 07/01/18 21:23 Temperature 98.5 F Pulse Rate 70 Respiratory 18 Rate Blood Pressure 171/84 O2 Sat by Pulse 100 Oximetry - Reevaluation(s) Reevaluation #1: 07/01/18 23:53 Patient is speaking in full sentences with no signs of distress noted. ED Medical Decision Making - Medical Decision Making This is a 58-year-old female that presents with right hand and knee strain. Patient is stable and was examined by me. I referred patient to an orthopedic doctor for further evaluation for possible MRI. X-ray has been obtained and dictated by the radiologist. Patient is notified of the x-ray report with noted by the patient. Patient does have normal gait with no tenderness and no joint swelling. No ecchymosis. no joint redness or swelling. Not warm to touch. No signs of cellulites present. Patient received al wrap to knee and walker at discharge. Patient was instructed to RICE therapy. Patient is discharged with Tylenol. At time of discharge, the patient does not seem toxic or ill in appearance. No acute signs of distress noted. Patient agrees to discharge treatment plan of care. No further questions noted by the patient. Critical care attestation.: If time is entered above; I have spent that time in minutes in the direct care of this critically ill patient, excluding procedure time. ED Disposition Clinical Impression: Strain of right knee and leg Qualifiers: Encounter type: initial encounter Qualified Code(s): S86.911A - Strain of unspecified muscle(s) and tendon(s) at lower leg level, right leg, initial encounter Strain of right hand Qualifiers: Encounter type: initial encounter Qualified Code(s): S66.911A - Strain of unspecified muscle, fascia and tendon at wrist and hand level, right hand, initial encounter Disposition: - TO HOME OR SELFCARE Is pt being admited?: No Does the pt Need Aspirin: No Condition: Stable Instructions: RICE Therapy (ED) Additional Instructions: Follow-up with a orthopedic doctor in 3-5 days or if symptoms worsen and continue return to emergency room as soon as possible. Prescriptions: Acetaminophen 500 mg PO Q8H PRN #20 tablet PRN Reason: Pain , Severe (7-10) Referrals: PRIMARY MD LANE [Primary Care Provider] - 3-5 Days HARMEET STERLING MD [Staff Physician] - 3-5 Days [facility] [Outside] - 3-5 Days
[2018-07-02 00:50] VITALS: BP 165/89
== END 2018-07-02 00:25 | disposition home or self-care (01) ==
LOC: ED 20:01
DX: S86.911A Strain of unspecified muscle(s) and tendon(s) at lower leg level, right leg, initial encounter (principal); S66.911A Strain of unspecified muscle, fascia and tendon at wrist and hand level, right hand, initial encounter; I10 Essential (primary) hypertension; M19.90 Unspecified osteoarthritis, unspecified site; Z90.711 Acquired absence of uterus with remaining cervical stump; Z88.0 Allergy status to penicillin; Z86.718 Personal history of other venous thrombosis and embolism; W01.0XXA Fall on same level from slipping, tripping and stumbling without subsequent striking against object, initial encounter; Y93.89 Activity, other specified; Y92.89 Other specified places as the place of occurrence of the external cause; Y99.8 Other external cause status

== ENCOUNTER 2018-07-06 08:53 | Emergency (ER) | payer MEDICAID ==
[2018-07-06 09:06] VITALS: BP 193/87
--- NOTE | 2018-07-06 09:21 | Emergency Department Report ---
ED General Adult HPI - General Chief complaint: Headache Stated complaint: BACK/RIGHT LEG/HEAD PAIN Time Seen by Provider: 07/06/18 09:13 Source: patient Mode of arrival: Ambulatory Limitations: No Limitations - History of Present Illness Initial comments: Patient presents to emergency department with a chief complaint of a headache. Patient states she was shopping at a local grocery store on when she fell hitting her head. Patient is not sure of any loss of consciousness. Patient was seen in the emergency department on that day but only had right knee pain and had an x-ray done that did not show any acute findings. Patient has no other complaints. -: Gradual Location: head Radiation: non-radiation Severity scale (0 -10): 3 Consistency: constant Improves with: none Worsens with: none Associated Symptoms: denies other symptoms Treatments Prior to Arrival: none - Related Data Home Medications Medication Instructions Recorded Confirmed Last Taken Sprycel 100 mg PO DAILY 12/15/17 03/19/18 05/13/18 ALPRAZolam [Xanax TAB] 0.25 mg PO DAILY PRN 03/19/18 03/19/18 2 Days Ago ~05/12/18 Oxycodone HCl/Acetaminophen 1 each PO Q6HR PRN 03/19/18 05/14/18 05/12/18 [Percocet 10/325 mg] Venlafaxine HCl [Venlafaxin ER] 75 mg PO PRN 03/19/18 05/14/18 Unknown Metoprolol [Lopressor TAB] 50 mg PO BID 05/14/18 05/14/18 05/14/18 04:30 amLODIPine [Norvasc] 10 mg PO DAILY 05/14/18 05/14/18 05/14/18 04:30 Previous Rx's Medication Instructions Recorded Last Taken Type Polyethylene Glycol 3350 [Miralax 17 gm PO QDAY PRN #7 packet 03/19/18 Unknown Rx 3350] Acetaminophen 500 mg PO Q8H PRN #20 tablet 07/01/18 Unknown Rx Ibuprofen [Motrin] 800 mg PO Q8HR PRN #30 tablet 07/06/18 Unknown Rx Allergies Allergy/AdvReac Type Severity Reaction Status Date / Time Penicillins Allergy Intermediate Swelling Verified 05/14/18 06:26 ED Review of Systems ROS: Stated complaint: BACK/RIGHT LEG/HEAD PAIN Other details as noted in HPI Comment: All other systems reviewed and negative Constitutional: denies: chills, fever Eyes: denies: eye pain, eye discharge, vision change ENT: denies: ear pain, throat pain Respiratory: denies: cough, shortness of breath, wheezing Cardiovascular: denies: chest pain, palpitations Endocrine: no symptoms reported Gastrointestinal: denies: abdominal pain, nausea, diarrhea Genitourinary: denies: urgency, dysuria, discharge Musculoskeletal: denies: back pain, joint swelling, arthralgia Skin: denies: rash, lesions Neurological: headache. denies: weakness, paresthesias Psychiatric: denies: anxiety, depression Hematological/Lymphatic: denies: easy bleeding, easy bruising ED Past Medical Hx - Past Medical History Previous Medical History?: Yes Hx Hypertension: Yes Hx Heart Attack/AMI: No Hx Congestive Heart Failure: No Hx Diabetes: No Hx Deep Vein Thrombosis: Yes Hx Pulmonary Embolism: Yes (IVC filter place 2010) Hx Arthritis: Yes Hx Psychiatric Treatment: Yes (depression) Hx Asthma: No Hx COPD: No Hx HIV: No Additional medical history: leukemia - Surgical History Past Surgical History?: Yes Additional Surgical History: PARTIAL HYSTERECTOMY - Social History Smoking Status: Never Smoker Substance Use Type: None - Medications Home Medications: Home Medications Medication Instructions Recorded Confirmed Last Taken Type Sprycel 100 mg PO DAILY 12/15/17 03/19/18 05/13/18 History ALPRAZolam [Xanax TAB] 0.25 mg PO DAILY PRN 03/19/18 03/19/18 2 Days Ago History ~05/12/18 Oxycodone HCl/Acetaminophen 1 each PO Q6HR PRN 03/19/18 05/14/18 05/12/18 History [Percocet 10/325 mg] Polyethylene Glycol 3350 [Miralax 17 gm PO QDAY PRN #7 packet 03/19/18 Unknown Rx 3350] Venlafaxine HCl [Venlafaxin ER] 75 mg PO PRN 03/19/18 05/14/18 Unknown History Metoprolol [Lopressor TAB] 50 mg PO BID 05/14/18 05/14/18 05/14/18 04:30 History amLODIPine [Norvasc] 10 mg PO DAILY 05/14/18 05/14/18 05/14/18 04:30 History Acetaminophen 500 mg PO Q8H PRN #20 tablet 07/01/18 Unknown Rx Ibuprofen [Motrin] 800 mg PO Q8HR PRN #30 tablet 07/06/18 Unknown Rx ED Physical Exam - General Limitations: No Limitations General appearance: alert, in no apparent distress - Head Head exam: Present: atraumatic, normocephalic - Eye Eye exam: Present: normal appearance, PERRL, EOMI - ENT ENT exam: Present: mucous membranes moist - Neck Neck exam: Present: normal inspection - Respiratory Respiratory exam: Present: normal lung sounds bilaterally. Absent: respiratory distress, wheezes, rales, rhonchi - Cardiovascular Cardiovascular Exam: Present: regular rate, normal rhythm. Absent: systolic murmur, diastolic murmur, rubs, gallop - GI/Abdominal GI/Abdominal exam: Present: soft, normal bowel sounds - Extremities Exam Extremities exam: Present: normal inspection - Back Exam Back exam: Present: normal inspection - Neurological Exam Neurological exam: Present: alert, oriented X3, CN II-XII intact, motor sensory deficit - Psychiatric Psychiatric exam: Present: normal affect, normal mood - Skin Skin exam: Present: warm, dry, intact, normal color. Absent: rash ED Course Vital Signs 07/06/18 09:00 Temperature 98.8 F Pulse Rate 82 Respiratory 22 Rate Blood Pressure 193/87 O2 Sat by Pulse 97 Oximetry ED Medical Decision Making - Medical Decision Making Discussed results with the patient Critical care attestation.: If time is entered above; I have spent that time in minutes in the direct care of this critically ill patient, excluding procedure time. ED Disposition Clinical Impression: Headache Disposition: DC- TO HOME OR SELFCARE Is pt being admited?: No Does the pt Need Aspirin: No Condition: Stable Instructions: Acute Headache (ED) Additional Instructions: return if worse Prescriptions: Ibuprofen [Motrin] 800 mg PO Q8HR PRN #30 tablet PRN Reason: pain Referrals: PRIMARY CARE, [Primary Care Provider] - 3-[address] [facility] [Provider Group] - 3-5 Days [facility] [Outside] - 3-5 Days Time of Disposition: 10:31
--- NOTE | 2018-07-06 10:07 | Cat Scan Report ---
CT HEAD WITHOUT CONTRAST: HISTORY: Headache, head injury. TECHNIQUE: Sequential 2.5mm CT images. COMPARISON: 07/30/17. FINDINGS: Cerebral Parenchyma: Within normal limits. Cerebellum: Within normal limits. Brainstem: Within normal limits. Ventricles: Normal. Sella: Normal. Extra-axial spaces: Normal. Basal Cisterns: Normal. Intracranial Hemorrhage: None. Midline Shift: None. Calvarium: Normal. Sinuses: Normal. Mastoid Air Cells: Normal. Visualized Orbits: Normal. IMPRESSION: Cranial CT scan within normal limits.
== END 2018-07-06 11:15 | disposition home or self-care (01) ==
LOC: ED 08:53
DX: R51 Headache (principal); F32.9 Major depressive disorder, single episode, unspecified; I10 Essential (primary) hypertension; Z86.718 Personal history of other venous thrombosis and embolism; Z88.0 Allergy status to penicillin; Z86.711 Personal history of pulmonary embolism; Z90.711 Acquired absence of uterus with remaining cervical stump
CPT/HCPCS: 70450; 99283

== ENCOUNTER 2018-12-01 10:09 | Outpatient (CLI) | payer MEDICAID ==
--- NOTE | 2018-12-01 10:43 | XRay Report ---
RIGHT KNEE RADIOGRAPHS INDICATION: Right knee pain. COMPARISON: 07/01/2018. FINDINGS: AP and lateral right knee radiographs demonstrate intact overall articulation with patella again slightly high riding. Mild degenerative spurring involving the tibial spines and the medial corners. Patellofemoral joint space narrowing again not excluded. Superior and inferior patellar enthesophytes noted. No suprapatellar effusion. CONCLUSION: No acute right knee radiographic abnormality with few degenerative changes again noted, as described. Please correlate. Thank you for the opportunity to participate in this patient's care.
== END 2018-12-01 10:10 | disposition home or self-care (01) ==
LOC: XRAY 10:09
PROVIDERS: ATTEND Orthopaedic Surgery
DX: M17.11 Unilateral primary osteoarthritis, right knee (principal); I10 Essential (primary) hypertension; M19.90 Unspecified osteoarthritis, unspecified site

== ENCOUNTER 2019-02-02 07:25 | Emergency (ER) | payer MEDICAID ==
[2019-02-02] MEDS ORDERED: SUBLIMAZE IV ONE (09:57)
[2019-02-02] MEDS ORDERED: ZOFRAN IV ONE (09:57)
--- NOTE | 2019-02-02 10:02 | Emergency Department Report ---
HPI - General Chief Complaint: Abdominal Pain Time Seen by Provider: 02/02/19 09:46 - HPI HPI: Room 24 The patient is a 4-year-old female presenting with a chief complaint of abdominal pain. She states for the past 2 weeks she's had pain in the right u pper quadrant, right lower quadrant and left lower quadrant. Patient states the pain was initially intermittent but is now constant. Patient admits to nausea without vomiting. Patient admits to diarrhea for 3 weeks. Patient states her skin daigle when she urinates but denies vaginal discharge or fever. Patient admits to hematuria. Location: Abdomen Duration: [See above] Quality: Pain Severity: 06/23 Modifying factors: [see above] Context: [see above] Mode of transportation: [not driving] ED Past Medical Hx - Past Medical History Hx Hypertension: Yes Hx Deep Vein Thrombosis: Yes Hx Pulmonary Embolism: Yes (IVC filter place 2010) Hx Arthritis: Yes Hx Psychiatric Treatment: Yes (depression) Additional medical history: leukemia - Surgical History Additional Surgical History: PARTIAL HYSTERECTOMY C SECTION X1. LEFT FOOT SURGE RY - Family History Family history: no significant - Social History Smoking Status: Never Smoker Substance Use Type: None (denies illicit drug use) - Medications Home Medications: Home Medications Medication Instructions Recorded Confirmed Last Taken Type Sprycel 100 mg PO DAILY 12/15/17 03/19/18 05/13/18 History ALPRAZolam [Xanax TAB] 0.25 mg PO DAILY PRN 03/19/18 03/19/18 2 Days Ago History ~05/12/18 Oxycodone HCl/Acetaminophen 1 each PO Q6HR PRN 03/19/18 05/14/18 05/12/18 History [Percocet 10/325 mg] Polyethylene Glycol 3350 [Miralax 17 gm PO QDAY PRN #7 packet 03/19/18 Unknown Rx 3350] Venlafaxine HCl [Venlafaxin ER] 75 mg PO PRN 03/19/18 05/14/18 Unknown History Metoprolol [Lopressor TAB] 50 mg PO BID 05/14/18 05/14/18 05/14/18 04:30 History amLODIPine [Norvasc] 10 mg PO DAILY 05/14/18 05/14/18 05/14/18 04:30 History Acetaminophen 500 mg PO Q8H PRN #20 tablet 07/01/18 Unknown Rx Acetaminophen [Acetaminophen ORAL 650 mg PO Q4HR PRN #500 ml 07/29/18 Unknown Rx LIQ] Ondansetron [Zofran Odt] 4 mg PO Q8HR PRN #15 tab.rapdis 07/29/18 Unknown Rx Famotidine [Pepcid] 20 mg PO BID #20 tablet 02/02/19 Unknown Rx HYDROcodone/APAP 5-325 [[place] 1 - 2 each PO Q6HR PRN #14 tablet 02/02/19 Unknown Rx 5/325] Valacyclovir HCl [Valtrex] 1,000 mg PO BID #20 tablet 02/02/19 Unknown Rx ED Review of Systems ROS: Stated complaint: STOMACH PAIN/HEADACHE Other details as noted in HPI Constitutional: denies: fever Eyes: denies: eye pain ENT: denies: throat pain Respiratory: no symptoms reported Cardiovascular: denies: chest pain Endocrine: no symptoms reported Gastrointestinal: abdominal pain, nausea, diarrhea. denies: vomiting Genitourinary: hematuria. denies: discharge Musculoskeletal: denies: back pain Neurological: denies: headache Physical Exam - Physical Exam Vital Signs: Vital Signs 02/02/19 07:31 Temperature 97.9 F Pulse Rate 78 Respiratory 20 Rate Blood Pressure 175/94 O2 Sat by Pulse 99 Oximetry Physical Exam: GENERAL: The patient is well-developed well-nourished female lying on stretcher not appearing to be in acute distress. [] HEENT: Normocephalic. Atraumatic. Extraocular motions are intact. Patient has moist mucous membranes. NECK: Supple. Trachea midline CHEST/LUNGS: Clear to auscultation. There is no respiratory distress noted. HEART/CARDIOVASCULAR: Regular. There is no tachycardia. There is no gallop rub or murmur. ABDOMEN: Abdomen is soft, with tenderness to palpation in the right lower quadrant, suprapubic and left lower quadrant. There is no rebound or guarding. There is no tenderness to palpation in the right upper quadrant. Patient has normal bowel sounds. There is no abdominal distention. SKIN: There is no rash. There is no edema. There is no diaphoresis. NEURO: The patient is awake, alert, and oriented. The patient is cooperative. The patient has normal speech MUSCULOSKELETAL: There is no evidence of acute injury. ED Course Vital Signs 02/02/19 07:31 Temperature 97.9 F Pulse Rate 78 Respiratory 20 Rate Blood Pressure 175/94 O2 Sat by Pulse 99 Oximetry - Phlebotomy Reason for Blood Draw by MD: RN/lab unable Obtained Bloods via: femoral artery stick Estimated cc's Blood Obtained: 12 ED Medical Decision Making - Lab Data Result diagrams: 02/02/19 13:28 02/02/19 13:28 Laboratory Tests 02/02/19 02/02/19 02/02/19 07:39 09:17 13:28 WBC 11.5 H RBC 4.17 Hgb 11.8 Hct 36.2 MCV 87 MCH 28 MCHC 33 RDW 15.5 H Plt Count 276 Add Manual Diff Complete Total Counted 100 Seg Neuts % (Manual) 67.0 Band Neutrophils % 0 Lymphocytes % (Manual) 23.0 Reactive Lymphs % (Man) 0 Monocytes % (Manual) 8.0 H Eosinophils % (Manual) 2.0 Basophils % (Manual) 0 Metamyelocytes % 0 Myelocytes % 0 Promyelocytes % 0 Blast Cells % 0 Nucleated RBC % Not Reportable Seg Neutrophils # Man 0.0 L Band Neutrophils # 0.0 Lymphocytes # (Manual) 0.0 L Abs React Lymphs (Man) 0.0 Monocytes # (Manual) 0.0 Eosinophils # (Manual) 0.0 Basophils # (Manual) 0.0 Metamyelocytes # 0.0 Myelocytes # 0.0 Promyelocytes # 0.0 Blast Cells # 0.0 WBC Morphology Not Reportable Hypersegmented Neuts Not Reportable Hyposegmented Neuts Not Reportable Hypogranular Neuts Not Reportable Smudge Cells Not Reportable Toxic Granulation Not Reportable Toxic Vacuolation Not Reportable Dohle Bodies Not Reportable Pelger-Huet Anomaly Not Reportable Dieter Rods Not Reportable Platelet Estimate Consistent w auto Clumped Platelets Not Reportable Plt Clumps, EDTA Not Reportable Large Platelets Not Reportable Giant Platelets Not Reportable Platelet Satelliting Not Reportable Plt Morphology Comment Not Reportable RBC Morphology Not Reportable Dimorphic RBCs Not Reportable Polychromasia Not Reportable Hypochromasia Not Reportable Poikilocytosis Not Reportable Anisocytosis 1+ Microcytosis Not Reportable Macrocytosis Not Reportable Spherocytes Not Reportable Pappenheimer Bodies Not Reportable Sickle Cells Not Reportable Target Cells Not Reportable Tear Drop Cells Not Reportable Ovalocytes Not Reportable Helmet Cells Not Reportable Chew-[place] Bodies Not Reportable Leckrone Rings Not Reportable Doswell Cells Not Reportable Bite Cells Not Reportable Crenated Cell Not Reportable Elliptocytes Not Reportable Acanthocytes (Spur) Not Reportable Rouleaux Not Reportable Hemoglobin C Crystals Not Reportable Schistocytes Not Reportable Malaria parasites Not Reportable Jatin Bodies Not Reportable Hem Pathologist Commnt No Sodium Potassium Chloride Carbon Dioxide Anion Gap BUN Creatinine Estimated GFR BUN/Creatinine Ratio Glucose POC Glucose 89 Calcium Total Bilirubin AST ALT Alkaline Phosphatase Total Protein Albumin Albumin/Globulin Ratio Lipase Urine Color Yellow Urine Turbidity Hazy Urine pH 5.0 Ur Specific [place] 1.016 Urine Protein 30 mg/dl Urine Glucose (UA) Neg Urine Ketones Neg Urine Blood Mod Urine Nitrite Neg Urine Bilirubin Neg Urine Urobilinogen < 2.0 Ur Leukocyte Esterase Neg Urine WBC (Auto) 4.0 Urine RBC (Auto) 11.0 U Epithel Cells (Auto) 7.0 Urine Mucus Few 02/02/19 02/02/19 02/02/19 13:28 13:28 13:28 WBC RBC Hgb Hct MCV MCH MCHC RDW Plt Count Add Manual Diff Total Counted Seg Neuts % (Manual) Band Neutrophils % Lymphocytes % (Manual) Reactive Lymphs % (Man) Monocytes % (Manual) Eosinophils % (Manual) Basophils % (Manual) Metamyelocytes % Myelocytes % Promyelocytes % Blast Cells % Nucleated RBC % Seg Neutrophils # Man Band Neutrophils # Lymphocytes # (Manual) Abs React Lymphs (Man) Monocytes # (Manual) Eosinophils # (Manual) Basophils # (Manual) Metamyelocytes # Myelocytes # Promyelocytes # Blast Cells # WBC Morphology Hypersegmented Neuts Hyposegmented Neuts Hypogranular Neuts Smudge Cells Toxic Granulation Toxic Vacuolation Dohle Bodies Pelger-Huet Anomaly Dieter Rods Platelet Estimate Clumped Platelets Plt Clumps, EDTA Large Platelets Giant Platelets Platelet Satelliting Plt Morphology Comment RBC Morphology Dimorphic RBCs Polychromasia Hypochromasia Poikilocytosis Anisocytosis Microcytosis Macrocytosis Spherocytes Pappenheimer Bodies Sickle Cells Target Cells Tear Drop Cells Ovalocytes Helmet Cells Chew-[place] Bodies Leckrone Rings Babs Cells Bite Cells Crenated Cell Elliptocytes Acanthocytes (Spur) Rouleaux Hemoglobin C Crystals Schistocytes Malaria parasites Jatin Bodies Hem Pathologist Commnt Sodium TNR 140 Potassium TNR 4.6 Chloride TNR 106.2 Carbon Dioxide TNR 21 L Anion Gap TNR 17 BUN TNR 9 Creatinine TNR 0.5 L Estimated GFR TNR > 60 BUN/Creatinine Ratio TNR 18 Glucose TNR 89 POC Glucose Calcium TNR 8.8 Total Bilirubin TNR 0.30 AST TNR 25 ALT TNR 11 Alkaline Phosphatase TNR 105 Total Protein TNR 7.6 Albumin TNR 3.5 L Albumin/Globulin Ratio TNR 0.9 Lipase 15 Urine Color Urine Turbidity Urine pH Ur Specific [place] Urine Protein Urine Glucose (UA) Urine Ketones Urine Blood Urine Nitrite Urine Bilirubin Urine Urobilinogen Ur Leukocyte Esterase Urine WBC (Auto) Urine RBC (Auto) U Epithel Cells (Auto) Urine Mucus - Radiology Data Radiology results: report reviewed (CT Abd pelvis), image reviewed (CT Abd pelvis) - Medical Decision Making CT findings including adrenal gland d/w pt. Pt adised to follow up with [facility] - Differential Diagnosis UTI, diverticulitis, enteritis, Critical care attestation.: If time is entered above; I have spent that time in minutes in the direct care of this critically ill patient, excluding procedure time. ED Disposition Clinical Impression: Acute abdominal pain Disposition: DC-01 TO HOME OR SELFCARE Is pt being admited?: No Does the pt Need Aspirin: No Condition: Stable Instructions: Abdominal Pain (ED) Additional Instructions: Return to the emergency department immediately should you develop worsening symp toms, fever, inability to tolerate food or liquid or any other concerns. Prescriptions: HYDROcodone/APAP 5-325 [[place] 5/325] 1 - 2 each PO Q6HR PRN #14 tablet PRN Reason: Pain Famotidine [Pepcid] 20 mg PO BID #20 tablet Valacyclovir HCl [Valtrex] 1,000 mg PO BID #20 tablet Referrals: BHUMIKA TAVARES DO [Primary Care Provider] - 3-5 Days Time of Disposition: 16:04
[2019-02-02 10:08] LABS: Bilirubin,Urine NEG (Negative); Blood,Urine MOD (Negative); Color,Urine Yellow (Yellow); Mucus,Urine FEW /HPF; Urobilinogen,Urine < 2.0 mg/dL (<2.0)
[2019-02-02] MEDS ORDERED: XYLOCAINE 2%/ EPI 1:200,000 INFILTRATI ONE (13:08)
[2019-02-02 13:39] LABS: Hematocrit 36.2 % (30.3-42.9); Hemoglobin 11.8 gm/dl (10.1-14.3); Mean Corpuscular HGB Conc 33 % (30-34); Mean Corpuscular Volume 87 fl (79-97); Red Blood Count 4.17 M/mm3 (3.65-5.03); Red Cell Distribution Width 15.5 % (13.2-15.2)
[2019-02-02 14:15] LABS: Basophils % (Manual) 0 % (0.0-1.8); Total Cells Counted 100
[2019-02-02 14:16] LABS: Anisocytosis 1+; Platelet Estimate Consistent w Auto
[2019-02-02 14:17] LABS: Platelet Count 276 K/mm3 (140-440)
[2019-02-02 14:28] LABS: Blood Urea Nitrogen TNR mg/dL (7-17)
[2019-02-02 14:29] LABS: Alanine Aminotransferase TNR units/L (7-56); Albumin TNR g/dL (3.9-5); BUN/Creatinine Ratio TNR; Calcium TNR mg/dL (8.4-10.2); Hemolysis Index TNR
[2019-02-02 14:47] LABS: Albumin 3.5 g/dL (3.9-5); BUN/Creatinine Ratio 18; Blood Urea Nitrogen 9 mg/dL (7-17); Calcium 8.8 mg/dL (8.4-10.2); Hemolysis Index 211
[2019-02-02 15:06] VITALS: BP 176/73
[2019-02-02 15:27] LABS: Alanine Aminotransferase 11 units/L (7-56)
[2019-02-02] MEDS ORDERED: DILAUDID IV PRN (15:47)
--- NOTE | 2019-02-02 16:01 | Cat Scan Report ---
CT abdomen and pelvis without contrast: Abdominal pain. Transverse images are obtained from lower chest to the ischium with coronal and sagittal 2-D reformatted images. Comparison is made to prior examination in July 2018. There is a calcified nodule in the anterior segment of the left lower lobe and there are numerous scattered calcifications in the spleen. The gallbladder lumen is denser than normal and is packed with tiny calcifications. No evidence of inflammatory changes noted in the surrounding tissues. No evidence of obstruction. The pancreas is unremarkable. There is an 18 mm mass in the left adrenal gland. It has an average Hounsfield unit of 25 which is significantly higher than the 8 measured on the prior exam. There's been no change in size. The kidneys are unremarkable bilaterally. There is an IVC filter present. The unopacified bowel and mesentery appear generally unremarkable. There may be contrast or a couple calcifications in the tail of the appendix not seen on prior exam. No inflammatory changes appreciated. Images of the pelvis demonstrate removal of the uterus. No fluid or other findings. Impressions: 1. Possible development of calcifications or residual contrast in the appendix since prior exam in July 2018. No inflammatory changes identified. 2. The change in density of the left adrenal mass without change in size is of questionable significance and may be technical. Followup exam however may be prudent.
== END 2019-02-02 16:13 | disposition home or self-care (01) ==
LOC: ED 07:25
DX: R10.31 Right lower quadrant pain (principal); R10.11 Right upper quadrant pain; R11.0 Nausea; R19.7 Diarrhea, unspecified; I10 Essential (primary) hypertension; M19.90 Unspecified osteoarthritis, unspecified site; Z86.718 Personal history of other venous thrombosis and embolism; Z90.710 Acquired absence of both cervix and uterus; Z88.0 Allergy status to penicillin; Z88.8 Allergy status to other drugs, medicaments and biological substances
CPT/HCPCS: 36415; 74176; 80053; 81001; 82962; 83690; 85007; 85025; 96374; 96375; 99284; J2405; J3010

== ENCOUNTER 2019-02-18 06:12 | Emergency (ER) | payer MEDICAID ==
[2019-02-18 06:22] VITALS: BP 156/81
== END 2019-02-18 08:00 ==
LOC: ED 06:12
DX: J02.9 Acute pharyngitis, unspecified (principal); Z53.21 Procedure and treatment not carried out due to patient leaving prior to being seen by health care provider

== ENCOUNTER 2019-04-29 14:05 | Emergency (ER) | payer MEDICAID ==
--- NOTE | 2019-04-29 14:42 | Event Note ---
ED Screening Note ED Screening Note: pmh DVT leukemia DVT post hysterectomy she was taken off blood thinners 2017 rx metop spracil -leukemia norvasc In treatment for leukemia no sob or cp cc rle swelling This initial assessment/diagnostic orders/clinical plan/treatment(s) is/are subject to change based on patients health status, clinical progression and re- assessment by fellow clinical providers in the ED. Further treatment and workup at subsequent clinical providers discretion. Patient/guardian urged not to elope from the ED as their condition may be serious if not clinically assessed and managed. Initial orders include: labs ua
--- NOTE | 2019-04-29 15:40 | Vascular Lab Report ---
DUPLEX DOPPLER LOWER EXTREMITY VEINS, RIGHT INDICATION: Right lower extremity swelling. History of DVT. TECHNIQUE: Duplex doppler imaging was performed through the veins of the right lower extremity using venous compression and other maneuvers. COMPARISON: No relevant prior imaging study available. FINDINGS: Right Common femoral vein: Negative. Right Superficial femoral vein: Negative. Right Popliteal vein: Negative. Right Calf veins: Negative. Additional findings: None.. IMPRESSION: No sonographic evidence for DVT in the right lower extremity. Signer Name: Ash Tierney Jr, MD Signed: 04/29/2019 3:35 PM Workstation Name: [id number]
[2019-04-29 15:41] LABS: Basophils % (Auto) 0.2 % (0.0-1.8); Eosinophils # (Auto) 0.3 K/mm3 (0.0-0.4); Eosinophils % (Auto) 3.8 % (0.0-4.3); Hematocrit 36.3 % (30.3-42.9); Lymphocytes # (Auto) 2.7 K/mm3 (1.2-5.4); Lymphocytes % (Auto) 30.1 % (13.4-35.0); Mean Corpuscular HGB Conc 33 % (30-34); Mean Corpuscular Volume 87 fl (79-97); Monocytes # (Auto) 0.9 K/mm3 (0.0-0.8); Monocytes % (Auto) 10.6 % (0.0-7.3); Platelet Count 212 K/mm3 (140-440); Red Blood Count 4.16 M/mm3 (3.65-5.03); Red Cell Distribution Width 15.4 % (13.2-15.2)
[2019-04-29 16:04] LABS: Alanine Aminotransferase 10 units/L (7-56); Albumin 3.7 g/dL (3.9-5); BUN/Creatinine Ratio 15; Blood Urea Nitrogen 9 mg/dL (7-17); Calcium 9.3 mg/dL (8.4-10.2); Hemolysis Index 7
--- NOTE | 2019-04-29 16:33 | XRay Report ---
CHEST 2 VIEWS INDICATION / CLINICAL INFORMATION: Shortness of breath. COMPARISON: 06/25/2011. FINDINGS: SUPPORT DEVICES: None. HEART / MEDIASTINUM: There is mild cardiomegaly with a left ventricular configuration. LUNGS / PLEURA: There is mild prominence of the central pulmonary vessels. There is slight peribronch ial thickening and thickening of the fissures. No pneumothorax. ADDITIONAL FINDINGS: No significant additional findings. IMPRESSION: Mild cardiomegaly with possible slight congestion/interstitial edema. Signer Name: Nicholas Allen MD Signed: 04/29/2019 4:28 PM Workstation Name: [id number]
[2019-04-29 16:59] VITALS: BP 168/62
[2019-04-29] MEDS ORDERED: LASIX PO ONE (17:00)
--- NOTE | 2019-04-29 17:16 | Emergency Department Report ---
HPI - General Chief Complaint: Extremity Problem,Nontraumatic Time Seen by Provider: 04/29/19 14:40 - HPI HPI: 58 year-old female presents to the emergency department with the complaint of some pain to the right ankle and distal leg as well as some lower extremity swelling. She was sent in by her PCP to rule out a DVT. She has previous history of DVT and has an IVC filter in place. She has a history of arthritis, hypertension and leukemia. Her primary care physician is also her oncologist, Dr. Tavares. Patient says that she was seen for the lower show any swelling 1 week ago at a hospital in [place] and was given "a shot of something" that ended up helping with the swelling that sounds like Lasix. She denies any shortness of breath, chest pain, fever. Patient also complains of some rash that has been on her bilateral shoulders past 2 or 3 days. It itches. She denies any bleeding, weeping or drainage. ED Past Medical Hx - Past Medical History Previous Medical History?: Yes Hx Hypertension: Yes Hx Heart Attack/AMI: No Hx Congestive Heart Failure: No Hx Diabetes: No Hx Deep Vein Thrombosis: Yes Hx Pulmonary Embolism: Yes (IVC filter place 2010) Hx Arthritis: Yes Hx Psychiatric Treatment: Yes (depression) Hx Asthma: No Hx COPD: No Hx HIV: No Additional medical history: leukemia - Surgical History Past Surgical History?: Yes Additional Surgical History: PARTIAL HYSTERECTOMY C SECTION X1. LEFT FOOT SURGERY - Social History Smoking Status: Never Smoker - Medications Home Medications: Home Medications Medication Instructions Recorded Confirmed Last Taken Type Sprycel 100 mg PO DAILY 12/15/17 03/19/18 05/13/18 History ALPRAZolam [Xanax TAB] 0.25 mg PO DAILY PRN 03/19/18 03/19/18 2 Days Ago History ~05/12/18 Oxycodone HCl/Acetaminophen 1 each PO Q6HR PRN 03/19/18 05/14/18 05/12/18 History [Percocet 10/325 mg] Polyethylene Glycol 3350 [Miralax 17 gm PO QDAY PRN #7 packet 03/19/18 Unknown Rx 3350] Venlafaxine HCl [Venlafaxin ER] 75 mg PO PRN 03/19/18 05/14/18 Unknown History Metoprolol [Lopressor TAB] 50 mg PO BID 05/14/18 05/14/18 05/14/18 04:30 History amLODIPine [Norvasc] 10 mg PO DAILY 05/14/18 05/14/18 05/14/18 04:30 History Acetaminophen 500 mg PO Q8H PRN #20 tablet 07/01/18 Unknown Rx Acetaminophen [Acetaminophen ORAL 650 mg PO Q4HR PRN #500 ml 07/29/18 Unknown Rx LIQ] Ondansetron [Zofran Odt] 4 mg PO Q8HR PRN #15 tab.rapdis 07/29/18 Unknown Rx Famotidine [Pepcid] 20 mg PO BID #20 tablet 02/02/19 Unknown Rx HYDROcodone/APAP 5-325 [[place] 1 - 2 each PO Q6HR PRN #14 tablet 02/02/19 Unknown Rx 5/325] Valacyclovir HCl [Valtrex] 1,000 mg PO BID #20 tablet 02/02/19 Unknown Rx ED Review of Systems ROS: Stated complaint: POSS BLOT CLOT IN FOOT/RASH ON ARM Other details as noted in HPI Comment: All other systems reviewed and negative Constitutional: denies: chills, fever Eyes: denies: eye pain, vision change ENT: denies: ear pain, throat pain Respiratory: denies: cough, shortness of breath Cardiovascular: edema. denies: chest pain, palpitations Gastrointestinal: denies: abdominal pain, vomiting Genitourinary: denies: dysuria, frequency Musculoskeletal: joint swelling, arthralgia Skin: rash (to b/l shoulders) Neurological: denies: headache, numbness Physical Exam - Physical Exam Vital Signs: Vital Signs 04/29/19 04/29/19 04/29/19 14:40 16:58 16:59 Temperature 98.3 F 97.4 F L Pulse Rate 63 63 Respiratory 18 18 18 Rate Blood Pressure 201/88 Blood Pressure 168/62 [Right] O2 Sat by Pulse 100 100 99 Oximetry Physical Exam: GENERAL: The patient is well-developed well-nourished. HENT: Normocephalic. Atraumatic. Patient has moist mucous membranes. EYES: Extraocular motions are intact. NECK: Supple. Trachea is midline. CHEST/LUNGS: Clear to auscultation. There is no respiratory distress noted. HEART/CARDIOVASCULAR: Regular. There is no tachycardia. There is no murmur. ABDOMEN: Abdomen is soft, nontender. Patient has normal bowel sounds. There is no abdominal distention. SKIN: There is bilateral mild pitting lower extremity edema. No skin color change. NEURO: The patient is awake, alert, and oriented. The patient is cooperative. The patient has no focal neurologic deficits. The patient has normal speech. MUSCULOSKELETAL: There is some tenderness to palpation to the right medial ankle and medial distal lower extremity but no obvious deformities. There is no limitation range of motion. ED Course Vital Signs 04/29/19 04/29/19 04/29/19 14:40 16:58 16:59 Temperature 98.3 F 97.4 F L Pulse Rate 63 63 Respiratory 18 18 18 Rate Blood Pressure 201/88 Blood Pressure 168/62 [Right] O2 Sat by Pulse 100 100 99 Oximetry ED Medical Decision Making - Lab Data Result diagrams: 04/29/19 15:28 04/29/19 15:28 - EKG Data -: EKG Interpreted by Me EKG shows normal: sinus rhythm, axis, intervals, QRS complexes, ST-T waves Rate: normal - EKG Data When compared to previous EKG there are: previous EKG unavailable Interpretation: normal EKG - Radiology Data Radiology results: report reviewed, image reviewed interpreted by me: Chest x-ray does not show any acute process. There are no pleural effusions, obvious pneumonia and there is no pneumothorax. There is some mild pulmonary vascular congestion. Right ankle x-ray does not show any fracture, dislocation or any acute process. DUPLEX DOPPLER LOWER EXTREMITY VEINS, RIGHT INDICATION: Right lower extremity swelling. History of DVT. TECHNIQUE: Duplex doppler imaging was performed through the veins of the right lower extremity using venous compression and other maneuvers. COMPARISON: No relevant prior imaging study available. FINDINGS: Right Common femoral vein: Negative. Right Superficial femoral vein: Negative. Right Popliteal vein: Negative. Right Calf veins: Negative. Additional findings: None.. IMPRESSION: No sonographic evidence for DVT in the right lower extremity. - Medical Decision Making This patient was sent in by her PCP/oncologist to rule out a DVT given her history of DVT and some recent lower extremity swelling and pain. At this time, she only has some pain to the right medial ankle and just proximal to this but no obvious deformities. Right lower extremity venous Doppler was negative for DVT. X-ray of the right ankle does not show any obvious fracture, dislocation and was read by radiology as showing some osteoarthritis. Patient denies any chest pain or shortness of breath but she did have a chest x-ray through triage that showed some pulmonary vascular congestion but no pneumonia, pleural effusions or any other acute process. BNP less than 500 which effectively rules out CHF. The rest of her labs were unremarkable including a negative or low uric acid level. Patient was given 1 dose of Lasix for a little bit of diuresis secondary to her edema. Otherwise, she will follow-up with her PCP/oncologist on Thursday. She will return to the ER with any worsening of her symptoms or any acute distress. She did present initially with some elevated blood pressure but it came down to a more reasonable level without any antihypertensive medication given. - Differential Diagnosis DVT, gout, osteoarthritis, CHF Critical Care Time: No Critical care attestation.: If time is entered above; I have spent that time in minutes in the direct care of this critically ill patient, excluding procedure time. ED Disposition Clinical Impression: Bilateral lower extremity edema, H/O deep venous thrombosis, CML (chronic my elocytic leukemia) Hypertension Qualifiers: Hypertension type: essential hypertension Qualified Code(s): I10 - Essential (p rimary) hypertension Right ankle pain Qualifiers: Chronicity: unspecified Qualified Code(s): M25.571 - Pain in right ankle and joints of right foot Disposition: - TO HOME OR SELFCARE Is pt being admited?: No Condition: Stable Instructions: Leg Edema (ED), Hypertension (ED), Arthralgia (ED) Additional Instructions: Please follow-up with your primary care physician/oncologist in the next few days. Return to the emergency Department with any worsening of your symptoms or any acute distress. Referrals: BHUMIKA TAVARES DO [Staff Physician] - 2-3 Days Time of Disposition: 17:54
--- NOTE | 2019-04-29 17:31 | XRay Report ---
RIGHT ANKLE 3 VIEWS INDICATION / CLINICAL INFORMATION: Right ankle pain. COMPARISON: None available. FINDINGS: BONES / JOINT(S): There are mild degenerative changes involving the ankle and the dorsum of the midfo ot. There is a large spur at the insertion of the Achilles tendon on the calcaneus. There is a modera te sized plantar calcaneal spur. There is no evidence of fracture, dislocation or destructive lesion. SOFT TISSUES: There is moderate generalized soft tissue swelling. ADDITIONAL FINDINGS: None. Signer Name: Nicholas Allen MD Signed: 04/29/2019 5:26 PM Workstation Name: [id number]
== END 2019-04-29 18:19 | disposition home or self-care (01) ==
LOC: ED 14:05
DX: M25.571 Pain in right ankle and joints of right foot (principal); R60.0 Localized edema; I10 Essential (primary) hypertension; M19.90 Unspecified osteoarthritis, unspecified site; F32.9 Major depressive disorder, single episode, unspecified; Z86.718 Personal history of other venous thrombosis and embolism; Z79.01 Long term (current) use of anticoagulants; Z86.711 Personal history of pulmonary embolism; Z90.710 Acquired absence of both cervix and uterus; Z98.890 Other specified postprocedural states; Z79.899 Other long term (current) drug therapy; Z88.0 Allergy status to penicillin; Z88.6 Allergy status to analgesic agent
CPT/HCPCS: 36415; 71046; 80048; 80053; 83880; 84484; 84550; 85025; 93005; 93010

== ENCOUNTER 2019-10-04 11:50 | Outpatient (CLI) | payer MEDICAID ==
--- NOTE | 2019-10-04 13:05 | XRay Report ---
ABDOMEN 1 VIEW(S) INDICATION / CLINICAL INFORMATION: POSITION OF THE IVC FILTER. COMPARISON: None available. FINDINGS: TUBES / LINES: None. BOWEL GAS PATTERN: No significant abnormality. ADDITIONAL FINDINGS: IVC filter extends from mid L2 inferiorly to the superior aspect of L4. A broken leg lies inferior to the filter at the level of L4 body. Signer Name: Shan Peck MD Signed: 10/04/2019 1:00 PM Workstation Name: [id number]
== END 2019-10-04 11:51 | disposition home or self-care (01) ==
LOC: XRAY 11:50
PROVIDERS: ATTEND Internal Medicine Hematology & Oncology
DX: R10.9 Unspecified abdominal pain (principal)
CPT/HCPCS: 74018

== ENCOUNTER 2020-10-04 08:46 | Outpatient (CLI) | payer MEDICAID ==
--- NOTE | 2020-10-04 12:38 | Magnetic Resonance Report ---
MRI THORACIC SPINE WITHOUT CONTRAST INDICATION / CLINICAL INFORMATION: BIOMECHANICAL LESION. MID back pain TECHNIQUE: Multisequence, multiplanar images of the thoracic spine were obtained. COMPARISON: CT abdomen pelvis 02/02/2019. FINDINGS: ALIGNMENT: Loss of the normal thoracic kyphosis is noted. No additional abnormalities of alignment ar e identified. VERTEBRAE:A large benign hemangioma of bone is demonstrated at the T10 vertebral body. A similar find ing was present in the T10 vertebral body on CT abdomen pelvis dated 02/02/2019. Atypical benign heman giomata of bone are suspected at the T4 and T3 vertebral bodies. No additional areas of abnormal bone marrow signal intensity are identified. VISUALIZED SPINAL CORD: No intrinsic cord lesions are identified. There is no indication of cord comp ression. DEGENERATIVE FINDINGS: Widespread disc desiccation is present throughout the thoracic region. Small b road-based disc bulges are demonstrated at the T6-7 and T7-8 levels without significant thecal sac de formity. Anterior and right lateral osteophyte formation are present at multiple levels. There is no indication of disc herniation, central canal stenosis or neuroforaminal narrowing. PARASPINAL SOFT TISSUES: No significant abnormality. IMPRESSION: 1. No indication of disc herniation, central canal stenosis or significant neuroforaminal narrowing. Signer Name: Silvano Acevedo MD Signed: 10/04/2020 12:32 PM Workstation Name: [id number]
== END 2020-10-04 08:47 | disposition home or self-care (01) ==
LOC: MRI 08:46
PROVIDERS: ATTEND Internal Medicine Hematology & Oncology
DX: M40.294 Other kyphosis, thoracic region (principal); M51.24 Other intervertebral disc displacement, thoracic region; D18.09 Hemangioma of other sites; M99.9 Biomechanical lesion, unspecified; M25.78 Osteophyte, vertebrae
CPT/HCPCS: 72157; A9577; A9575

== ENCOUNTER 2021-02-09 10:35 | Emergency (ER) | payer MEDICAID | END 2021-02-09 11:33 | disposition left against medical advice (07) | LOC: ED 10:35 ==

== ENCOUNTER 2021-11-27 11:08 | Outpatient (CLI) | payer MEDICAID ==
--- NOTE | 2021-11-27 12:09 | XRay Report ---
RIGHT ELBOW 3 VIEW(S) INDICATION / CLINICAL INFORMATION: PAIN IN RIGHT ELBOW COMPARISON: None available. FINDINGS: BONES / JOINT(S): No acute fracture or subluxation. Moderate degenerative changes with enthesophytes at the medial and lateral epicondyles as well as the olecranon process. SOFT TISSUES: No significant abnormality. ADDITIONAL FINDINGS: None. Signer Name: Niraj Diaz MD Signed: 11/27/2021 12:05 PM Workstation Name: [email or web address]
== END 2021-11-27 11:09 | disposition home or self-care (01) ==
LOC: XRAY 11:08
PROVIDERS: ATTEND Internal Medicine Hematology & Oncology
DX: M19.021 Primary osteoarthritis, right elbow (principal); M25.721 Osteophyte, right elbow

== ENCOUNTER 2022-01-30 07:46 | Outpatient (CLI) | payer MEDICAID ==
--- NOTE | 2022-01-30 10:04 | Mammography Report ---
DEXA BONE DENSITY SCAN INDICATION / CLINICAL INFORMATION: M85.80. 61 years Female COMPARISON: None available. LUMBAR SPINE, L1-L4: - Bone mineral density (BMD) = 1.017 g/cm2. - T-score = -0.3 - Change (%) since most recent prior (if available): None available. LEFT HIP, TOTAL : - Bone mineral density (BMD) = 0.990 g/cm2. - T-score = 0.4 - Change (%) since most recent prior (if available): None available. IMPRESSION: 1. WHO Classification: Normal bone density. Fracture Risk: Not Increased. 2. 10-Year Fracture Risk (FRAX) = Major Osteoporotic Not reported.% / Hip: Not reported.% FRAX generally not reported for patients with normal or osteoporotic BMD, in otw-cqtwzqw-klizldk rosa ents younger than age 50, or in patients undergoing pharmacotherapy BMD Reporting Guidelines (ISCD, 2015) BMD Reporting in Postmenopausal Women and in Men Age 50 and Older - T-scores are preferred. - The WHO densitometric classification is applicable. BMD Reporting in Females Prior to Menopause and in Males Younger Than Age 50 - Z-scores, not T-scores, are preferred. This is particularly important in children. - A Z-score of -2.0 or lower is defined as below the expected range for age, and a Z-score above -2.0 is within the expected range for age. - Osteoporosis cannot be diagnosed in men under age 50 on the basis of BMD alone. - The WHO diagnostic criteria may be applied to women in the menopausal transition. http://www.iscd.org/official-positions/0423-qvqo-suirqfkc-positions-adult/ Signer Name: Reynaldo Felix MD Signed: 01/30/2022 10:00 AM Workstation Name: [id number]
--- NOTE | 2022-01-31 09:22 | Mammography Report ---
DIGITAL SCREENING MAMMOGRAM WITH CAD, 01/30/2022 CLINICAL INFORMATION / INDICATION: Routine screening mammography. SCREENING MAMMOGRAM TECHNIQUE: Digital bilateral 2D mammography was obtained in the craniocaudal and mediolateral obliqu e projections. This examination was interpreted with the benefit of Computer-Aided Detection analysis . COMPARISON: 01/24/2009. FINDINGS: Breast Density: There are scattered areas of fibroglandular density. No dominant mass, suspicious calcifications, or architectural distortion in either breast. IMPRESSION: No mammographic evidence of malignancy. Follow up recommendation: Routine yearly screening mammogram. BI-RADS Category 1: NEGATIVE A "normal" or negative report should not discourage follow up or biopsy of a clinically significant f inding. A written summary of these findings will be mailed to the patient. The patient will be entered into a mammography reporting system which will generate a reminder letter for the patient's next appointmen t at the appropriate interval. The [employer] recommends yearly mammograms starting at age 40 and continuing as l [place] as a woman is in good health. Breast MRI is recommended for women with an approximate 20-25% or greater lifetime risk of breast cancer, including women with a strong family history of breast or ova philip cancer or who have been treated for Hodgkin's disease. Signer Name: Shan Peck MD Signed: 01/31/2022 9:17 AM Workstation Name: [id number]
== END 2022-01-30 07:47 | disposition home or self-care (01) ==
LOC: MAMMO 07:46
PROVIDERS: ATTEND Internal Medicine Hematology & Oncology
DX: Z12.31 Encounter for screening mammogram for malignant neoplasm of breast (principal); M85.80 Other specified disorders of bone density and structure, unspecified site
CPT/HCPCS: 77067; 77080

== ENCOUNTER 2022-05-07 11:18 | Emergency (ER) | payer MEDICAID ==
--- NOTE | 2022-05-07 13:47 | XRay Report ---
CHEST 2 VIEWS INDICATION / CLINICAL INFORMATION: Chest Pain. COMPARISON: 04/29/2019 FINDINGS: SUPPORT DEVICES: None. HEART / MEDIASTINUM: Stable borderline to mild cardiomegaly. LUNGS / PLEURA: No significant pulmonary or pleural abnormality. No pneumothorax. ADDITIONAL FINDINGS: No significant additional findings. IMPRESSION: 1. No acute findings. Stable borderline heart size. Lungs clear. Signer Name: Ash Tierney Jr, MD Signed: 05/07/2022 1:43 PM Workstation Name: [id number]
[2022-05-07 14:19] LABS: INR 0.92 (0.87-1.13); Partial Thromboplastin Time 31.5 Sec. (24.2-36.6)
[2022-05-07 14:27] LABS: Alanine Aminotransferase 11 units/L (7-56); Albumin 4.2 g/dL (3.9-5); Blood Urea Nitrogen 8 mg/dL (7-17); Calcium 9.8 mg/dL (8.4-10.2); Hemolysis Index 16
[2022-05-07 14:28] LABS: BUN/Creatinine Ratio 13; Hematocrit 39.3 % (30.3-42.9); Hemoglobin 12.4 gm/dl (10.1-14.3); Mean Corpuscular HGB Conc 32 % (30-34); Mean Corpuscular Volume 87 fl (79-97); Red Blood Count 4.52 M/mm3 (3.65-5.03); Red Cell Distribution Width 15.1 % (13.2-15.2)
[2022-05-07 14:32] LABS: Platelet Count 236 K/mm3 (140-440)
[2022-05-07 17:06] LABS: Band Neutrophils # (Manual) 0.1 K/mm3; Basophils % (Manual) 0 % (0.0-1.8); Eosinophils % (Manual) 0 % (0.0-4.3); Giant Platelets Few; Platelet Estimate Consistent w Auto; RBC Morphology Normal; Total Cells Counted 100
[2022-05-08 06:55] VITALS: BP 166/84
--- NOTE | 2022-05-08 07:06 | Emergency Department Report ---
ED General Adult HPI - General Chief complaint: Chest Pain Stated complaint: CHEST PAIN PUI?: No Time Seen by Provider: 05/08/22 06:30 Source: patient Mode of arrival: Ambulatory Limitations: No Limitations - History of Present Illness Initial comments: This is a pleasant 61-year-old female who has been in the emergency room for the past 19 hours and have just seen her when my shift started. This is a pleasant 60-year-old female with medical history hypertension with leukemia. According patient she denies history of diabetes or hyperlipidemia or myocardial infarction or stroke in the past. Patient is that she came in today because of chest pain that started this Thursday morning that initially started as a stinging sensation but then Thursday evening is more of a dull sensation. According to patient; it seems this movement makes it worse. Patient denies radiating anywhere else. Patient denies anything else makes it better or makes it worse. According patient she has never had this in the past. At the time my evaluation patient and she denies any discomfort. Patient denies fever chill night sweat dizziness blurred vision headache tinnitus ear pain runny nose sore throat loss of taste or smell chest pain pal pitation short of breath cough abdominal pain nausea vomiting diarrhea constipation joint pain muscle pain new rash and heat or cold intolerance. - Related Data Home Medications Medication Instructions Recorded Confirmed Last Taken Sprycel 100 mg PO DAILY 12/15/17 03/19/18 05/13/18 ALPRAZolam [Xanax TAB] 0.25 mg PO DAILY PRN 03/19/18 03/19/18 2 Days Ago ~05/12/18 Oxycodone HCl/Acetaminophen 1 each PO Q6HR PRN 03/19/18 05/14/18 05/12/18 [Percocet 10/325 mg] Venlafaxine HCl [Venlafaxin ER] 75 mg PO PRN 03/19/18 05/14/18 Unknown Metoprolol [Lopressor TAB] 50 mg PO BID 05/14/18 05/14/18 05/14/18 04:30 amLODIPine 10 mg PO DAILY 05/14/18 05/14/18 05/14/18 04:30 Previous Rx's Medication Instructions Recorded Last Taken Type polyethylene glycoL 3350 [Miralax 17 gm PO QDAY PRN #7 packet 03/19/18 Unknown Rx 3350] Acetaminophen 500 mg PO Q8H PRN #20 tablet 07/01/18 Unknown Rx Acetaminophen [Acetaminophen ORAL 650 mg PO Q4HR PRN #500 ml 07/29/18 Unknown Rx LIQ] Ondansetron [Zofran Odt] 4 mg PO Q8HR PRN #15 tab.rapdis 07/29/18 Unknown Rx Famotidine [Pepcid] 20 mg PO BID #20 tablet 02/02/19 Unknown Rx HYDROcodone/APAP 5-325 [[place] 1 - 2 each PO Q6HR PRN #14 tablet 02/02/19 Unknown Rx 5/325] Valacyclovir HCl [Valtrex] 1,000 mg PO BID #20 tablet 02/02/19 Unknown Rx Allergies Allergy/AdvReac Type Severity Reaction Status Date / Time Penicillins Allergy Intermediate Swelling Verified 05/07/22 13:09 lisinopril AdvReac Swelling Verified 05/07/22 13:09 ED Review of Systems ROS: Stated complaint: CHEST PAIN Other details as noted in HPI Comment: All other systems reviewed and negative Constitutional: no symptoms reported Eyes: as per HPI ENT: as per HPI Respiratory: no symptoms reported Cardiovascular: as per HPI Endocrine: no symptoms reported Gastrointestinal: as per HPI Genitourinary: as per HPI Musculoskeletal: as per HPI Skin: as per HPI Neurological: as per HPI Psychiatric: as per HPI Hematological/Lymphatic: as per HPI ED Past Medical Hx - Past Medical History Previous Medical History?: Yes Hx Hypertension: Yes Hx Heart Attack/AMI: No Hx Congestive Heart Failure: No Hx Diabetes: No Hx Deep Vein Thrombosis: Yes Hx Pulmonary Embolism: Yes (IVC filter place 2010) Hx Arthritis: Yes Hx Psychiatric Treatment: Yes (depression) Hx Asthma: No Hx COPD: No Hx HIV: No Additional medical history: leukemia - Surgical History Additional Surgical History: PARTIAL HYSTERECTOMY C SECTION X1. LEFT FOOT SURGERY - Social History Smoking Status: Never Smoker - Medications Home Medications: Home Medications Medication Instructions Recorded Confirmed Last Taken Type Sprycel 100 mg PO DAILY 12/15/17 03/19/18 05/13/18 History ALPRAZolam [Xanax TAB] 0.25 mg PO DAILY PRN 03/19/18 03/19/18 2 Days Ago History ~05/12/18 Oxycodone HCl/Acetaminophen 1 each PO Q6HR PRN 03/19/18 05/14/18 05/12/18 History [Percocet 10/325 mg] Venlafaxine HCl [Venlafaxin ER] 75 mg PO PRN 03/19/18 05/14/18 Unknown History polyethylene glycoL 3350 [Miralax 17 gm PO QDAY PRN #7 packet 03/19/18 Unknown Rx 3350] Metoprolol [Lopressor TAB] 50 mg PO BID 05/14/18 05/14/18 05/14/18 04:30 History amLODIPine 10 mg PO DAILY 05/14/18 05/14/18 05/14/18 04:30 History Acetaminophen 500 mg PO Q8H PRN #20 tablet 07/01/18 Unknown Rx Acetaminophen [Acetaminophen ORAL 650 mg PO Q4HR PRN #500 ml 07/29/18 Unknown Rx LIQ] Ondansetron [Zofran Odt] 4 mg PO Q8HR PRN #15 tab.rapdis 07/29/18 Unknown Rx Famotidine [Pepcid] 20 mg PO BID #20 tablet 02/02/19 Unknown Rx HYDROcodone/APAP 5-325 [[place] 1 - 2 each PO Q6HR PRN #14 tablet 02/02/19 Unknown Rx 5/325] Valacyclovir HCl [Valtrex] 1,000 mg PO BID #20 tablet 02/02/19 Unknown Rx ED Physical Exam - General Limitations: No Limitations General appearance: alert, in no apparent distress - Head Head exam: Present: atraumatic, normocephalic, normal inspection - Eye Eye exam: Present: normal appearance, PERRL, EOMI Pupils: Present: normal accommodation - ENT ENT exam: Present: normal exam, mucous membranes moist - Neck Neck exam: Present: normal inspection, full ROM - Respiratory Respiratory exam: Present: normal lung sounds bilaterally. Absent: respiratory distress - Cardiovascular Cardiovascular Exam: Present: regular rate, normal rhythm - GI/Abdominal GI/Abdominal exam: Present: soft - External exam: Present: normal external exam - Extremities Exam Extremities exam: Present: normal inspection, full ROM, normal capillary refill - Back Exam Back exam: Present: normal inspection, full ROM - Neurological Exam Neurological exam: Present: alert, altered, oriented X3, CN II-XII intact - Psychiatric Psychiatric exam: Present: normal affect, normal mood - Skin Skin exam: Present: normal color ED Course Vital Signs 0805/07/22 05/08/22 13:08 22:47 04:20 Temperature 98.5 F 98.3 F 97.9 F Pulse Rate 63 77 83 Respiratory 18 18 18 Rate Blood Pressure Blood Pressure 171/82 185/82 191/95 [Left] O2 Sat by Pulse 99 98 99 Oximetry 05/08/22 05/08/22 05/08/22 05:15 05:31 05:46 Temperature Pulse Rate 58 L 60 58 L Respiratory 18 20 17 Rate Blood Pressure 177/71 172/78 177/71 Blood Pressure [Left] O2 Sat by Pulse 98 99 98 Oximetry 05/08/22 05/08/22 05/08/22 06:01 06:15 06:31 Temperature Pulse Rate 59 L 57 L 77 Respiratory 12 15 20 Rate Blood Pressure 173/83 171/83 166/84 Blood Pressure [Left] O2 Sat by Pulse 100 99 98 Oximetry ED Medical Decision Making - Lab Data Result diagrams: 05/07/22 13:42 05/07/22 13:42 - EKG Data -: EKG Interpreted by Nv EKG shows normal: sinus rhythm Rate: normal - EKG Data Interpretation: no acute changes, normal EKG 05/08/22 07:07 SINUS AT 66 BPM; NO ST ELEVATION OR DEPRESSION; PVC. NO WELLEN WAVES. (EKG OBTAINED AT 05/07/22 AT 1326) - Radiology Data Radiology results: report reviewed, image reviewed No acute cardiopulmonary process. - Medical Decision Making Heart score of 2, +1 for age and also +1 for medical history of hypertension. I have informed patient to make a follow-up appointment with primary care provider to be seen within 3 days for further outpatient evaluation such as treadmill stress test. Patient was informed to return to the ER if there are any new symptom or current symptom worsening. Critical care attestation.: If time is entered above; I have spent that time in minutes in the direct care of this critically ill patient, excluding procedure time. ED Disposition Clinical Impression: Non-cardiac chest pain Disposition: HOME / SELF CARE / HOMELESS Is pt being admited?: No Does the pt Need Aspirin: No Condition: Stable Instructions: Nonspecific Chest Pain, Adult Additional Instructions: Make a follow-up appointment with your primary care provider to be seen within 3 days for further outpatient evaluation such as stress test. Return to the emergency room if you have any new new symptoms or previous symptoms return. Referrals: PRIMARY CARE, [Primary Care Provider] - 3-5 Days Time of Disposition: 07:10
--- NOTE | 2022-05-08 09:54 | Electrocardiograph Report ---
[facility] Test Date: 2022-05-07 Test Time: 13:26:30 Pat Name: CONCHIS BARLOW Department: Room: Gender: F Registered Nurse Maternity: 0000 : 1960 Requested By: ED DOC Order Number: [id number] Reading MD: Sabino Coleman Measurements Intervals [place] Rate: 66 P: 36 [place]: 178 QRS: 5 QRSD: 97 T: 61 QT: 411 QTc: 425 Interpretive Statements Sinus rhythm Ventricular premature complex Probable left atrial enlargement Probable left ventricular hypertrophy nonspecific st-t No previous ECG available for comparison Electronically Signed On 05-08-2022 9:54:27 EDT by Sabino Coleman
== END 2022-05-08 07:15 | disposition home or self-care (01) ==
LOC: ED 11:18
DX: R07.9 Chest pain, unspecified (principal); I10 Essential (primary) hypertension; Z88.0 Allergy status to penicillin; Z88.8 Allergy status to other drugs, medicaments and biological substances
CPT/HCPCS: 36415; 71046; 80053; 84484; 85007; 85025; 85610; 85730; 93005; 99284